=== PATIENT | female | born 1945 | race Caucasian/White ===

== ENCOUNTER 2022-09-21 15:53 | Emergency (ER) | payer MEDICARE, SELFPAY ==
[2022-09-21] VITALS (8 sets, daily range): BP systolic 170–210; BP diastolic 65–86; PULSE 62–79; RESP 20; TEMP 36.3; O2SAT 92–94; BMI 28.3
--- NOTE | 2022-09-21 16:17 | CRLHL7_ITS ---
For Patients: As a result of the Century Cures Act, medical imaging exams and procedure reports are released immediately into your electronic medical record. You may view this report before your referring provider. If you have questions, please contact your health care provider. Indication: Fall, left shoulder Pain Comparison: None available. Technique: AP, lateral, and axial views left elbow were obtained. Findings: There is no displaced fracture or dislocation. The joint spaces are grossly preserved. The soft tissues are unremarkable. Impression: No acute osseus abnormality. Dictated by Davin Go MD @ 09/21/2022 5:54:53 PM (Electronically Signed)
--- NOTE | 2022-09-21 16:17 | CRLHL7_ITS ---
For Patients: As a result of the Century Cures Act, medical imaging exams and procedure reports are released immediately into your electronic medical record. You may view this report before your referring provider. If you have questions, please contact your health care provider. Indication: Fall, left shoulder Pain Comparison: None available. Technique: AP and lateral views left humerus were obtained. Findings: There is a mildly comminuted, impacted fracture of the humeral neck. No evidence of dislocation. No other acute osseous abnormality. Mild soft tissue prominence. The partially visualized lung demonstrates chronic interstitial change. Impression: Mildly comminuted fracture of the humeral neck without significant malalignment. Dictated by Davin Go MD @ 09/21/2022 5:48:39 PM (Electronically Signed)
--- NOTE | 2022-09-21 16:17 | CRLHL7_ITS ---
For Patients: As a result of the Century Cures Act, medical imaging exams and procedure reports are released immediately into your electronic medical record. You may view this report before your referring provider. If you have questions, please contact your health care provider. Indication: Fall, left shoulder Pain Comparison: None available. Technique: AP and lateral views left humerus were obtained. Findings: There is a mildly impacted fracture of the proximal humerus without evidence of distal humeral injury. The joint spaces are grossly preserved. There is superficial soft tissue swelling. Impression: Mildly impacted fracture of the proximal humerus without evidence of distal injury. Dictated by Davin Go MD @ 09/21/2022 5:55:56 PM (Electronically Signed)
--- NOTE | 2022-09-21 17:11 | ED_ITS ---
HPI - General Adult General Time Seen by Provider: 17:12 Date Seen: 09/21/22 Chief complaint: Extremity Pain/Injury, Upper Stated complaint: Fell and injured left shoulder Time Seen by Provider: 09/21/22 17:10 Source: patient Mode of arrival: ambulatory Limitations: no limitations History of Present Illness HPI narrative: 72-year-old female who comes in today with left shoulder pain after a fall. She slipped and fell on the ice landing on her left elbow. She complains pain of the left elbow and shoulder. She is right-handed. Denies head head injury or loss of consciousness, denies other injury and has been ambulatory since her fall. Related Data Allergies Allergy/AdvReac Type Severity Reaction Status Date / Time No Known Drug Allergies Allergy Verified 09/21/22 16:07 Review of Systems Status of ROS: Reports: 10 or more systems reviewed and unremarkable except as noted in History and below [facility] PFS Social History Smoking Status: Current every day smoker What tobacco products do you use: cigarettes How often do you have a drink containing alcohol: never AUDIT-C Alcohol total score: 0 Non-prescribed substance use: denies use Exam Narrative: Exam Narrative: General: well nourished , NAD Head: Atraumatic and normocephalic ENT: External ears and external nose are normal Eyes: Conjunctiva clear, pupils are equal reactive, external ocular motions are intact Neck: Full spontaneous range of motion of the neck Lungs: No respiratory distress Musculoskeletal: Left shoulder tenderness and deformity, pain with any movement Neurologic: No gross focal neurologic deficits Skin: No rashes Psych: Mood and affect are appropriate Const: Vital Signs, click to edit/add: Vital Signs - 24 hr 09/21/22 16:03 Temperature 97.4 F L Pulse Rate [Pulse Oximeter] 79 Respiratory Rate 20 Blood Pressure [Ri ght Upper Arm] 170/68 H Pulse Oximetry 93 Oxygen Delivery Me thod Room Air Course Course Hospital Course: 5:13 p.m. patient seen examined, prior records are reviewed. X-rays ordered from triage independently interpreted by me demonstrate a fracture through the surgical neck on the left which is comminuted and mildly displaced. Patient will be placed in a sling and discharged. Reevaluation(s) Reevaluation #1: Radiology interpretation of x-rays agrees with my initial interpretation. Patient is stable for discharge. Time: 17:54 Vital Signs Vital signs: Initial Vital Signs Temperature 97.4 F L 09/21/22 16:03 Temperature Source Oral 09/21/22 16:03 Pulse Rate 79 09/21/22 16:03 Pulse Rhythm 09/21/22 16:03 Pulse Strength 3+ Normal 09/21/22 16:03 Respiratory Rate 20 09/21/22 16:03 Blood Pressure 170/68 H 09/21/22 16:03 Blood Pressure Mean 102 09/21/22 16:03 Blood Pressure Position Sitting 09/21/22 16:03 Pulse Oximetry 93 09/21/22 16:03 Oxygen Delivery Method 09/21/22 16:03 Vital Signs Temperature 97.4 F L 09/21/22 16:03 Pulse Rate 79 09/21/22 16:03 Respiratory Rate 20 09/21/22 16:03 Blood Pressure 170/68 H 09/21/22 16:03 Pulse Oximetry 93 09/21/22 16:03 Oxygen Delivery Method 09/21/22 16:03 Temperature 97.4 F L 09/21/22 16:03 Pulse Rate 79 09/21/22 16:03 Respiratory Rate 20 09/21/22 16:03 Blood Pressure 170/68 H 09/21/22 16:03 Pulse Oximetry 93 09/21/22 16:03 Oxygen Delivery Method 09/21/22 16:03 Medical Decision Making Medical Records Medical records reviewed: Yes I reviewed the patient's medical records Lab Data Lab results reviewed: Yes I reviewed the patient's lab results Discharge Plan Discharge Clinical Impression: Closed fracture of surgical neck of left humerus Patient Disposition: Home, Self-Care Condition: Improved Instructions: Arm Fracture in Adults (ED) Additional Instructions: Wear sling as much as possible. Follow-up in the [facility] orthopedic clinic next week [phone] Activity Level: Other Activity Detail: Wear sling at all times when you are up and about Discharge Diet: Regular Follow Up/Referrals: Veronica Florez DO [Primary Care Provider] - Stand Alone Forms: MyHealth Info Instructions
[2022-09-21] MEDS: HYDROCODONE-ACETAMIN 5-325 MG 1 TAB PO (17:38)
--- NOTE | 2022-09-21 18:27 | ED.NURSE ---
MD Patel aware that pt SBP>200 x2 and MD is okay with discharge. On D/C time last BP 190/72, pt is c/o of pain in left shoulder but denies CP and nausea.
== END 2022-09-21 18:25 | disposition home or self-care (01) ==
PROVIDERS: Emergency Provider Family Medicine; PCP Family Medicine
DX: S42.212A Unspecified displaced fracture of surgical neck of left humerus, initial encounter for closed fracture (principal); W00.0XXA Fall on same level due to ice and snow, initial encounter
CPT/HCPCS: 73030; 73060; 73080; 99283; 99284; 99285; A9270

== ENCOUNTER 2022-09-26 11:04 | Inpatient (IN) | payer MEDICARE, SELFPAY ==
[2022-09-26] VITALS (26 sets, daily range): BP systolic 128–167; BP diastolic 56–69; PULSE 55–87; RESP 20–28; TEMP 36.1–36.6; O2SAT 75–100; BMI 28.3
--- NOTE | 2022-09-26 11:28 | CRLHL7_ITS ---
For Patients: As a result of the Century Cures Act, medical imaging exams and procedure reports are released immediately into your electronic medical record. You may view this report before your referring provider. If you have questions, please contact your health care provider. INDICATION: Severe hypoxia and humerus fracture 1 week prior. TECHNIQUE: CT chest PE was acquired with 95 cc Isovue 370 intravenous contrast. COMPARISON: None. FINDINGS: Heart and vasculature: Contrast opacification of the pulmonary arterial tree is adequate. No sign of pulmonary embolism. Mild left ventricular dilatation. Severe coronary atherosclerosis. Thoracic aorta is normal in caliber with mild atherosclerotic calcification. Lungs and pleural: No pleural effusion or pneumothorax. Moderate to severe underlying centrilobular emphysema. Consolidation within the posterior and lateral segments of the right lower lobe. Discoid atelectasis left lower lobe. Lymph nodes/mediastinum: No mediastinal, hilar, or axillary adenopathy. Chest wall: Fat stranding along the left shoulder consistent the patient`s recent fracture. Upper abdomen: Cholelithiasis. Exophytic cyst upper pole left kidney. Slightly hyperdense lesion at the upper pole of the right kidney measuring 2.0 centimeters. Right renal atrophy. Bones: Surgical neck left proximal humerus fracture with mild medial displacement of the humeral shaft. IMPRESSION: 1. No evidence of pulmonary embolus. 2. Consolidation in the right lower lobe suspicious for pneumonia. 3. Left ventricular dilatation suggesting left ventricular failure with severe coronary atherosclerosis. 4. Moderate to severe centrilobular emphysema. 5. Indeterminate slightly hyperdense lesion at the upper pole the right kidney measuring 2.0 centimeters. Follow-up outpatient renal ultrasound suggested for further characterization. 6. Other incidental findings as detailed above. Please note that all CT scans at this facility use dose modulation, iterative reconstruction, and/or weight-based dosing when appropriate to reduce radiation dose to as low as reasonably achievable. Dictated by Paul Smiley MD @ 09/26/2022 2:01:36 PM (Electronically Signed)
[2022-09-26] MEDS: IPRAT-ALBUT 0.5-2.5 MG/3 ML NEB 1 NEB IH ×2 (11:34→19:40)
--- NOTE | 2022-09-26 11:50 | ED.GENADULT ---
HPI - General Adult General Date Seen: 09/26/22 Chief complaint: Shortness of Breath/Dyspnea Stated complaint: O2 in high 70s, BP 100/38 Time Seen by Provider: 09/26/22 11:25 Source: patient, RN notes reviewed and old records reviewed Mode of arrival: ambulatory Limitations: no limitations History of Present Illness HPI narrative: Is a 76-year-old woman who was seen here on September 21 after a fall. She sustained a left proximal humerus fracture. She went home in a sling. She had gone to clinic today, saying that apparently she was not able to get into Orthopedics and so she had gone to [facility] for follow-up for her arm. On arrival there she was noted to have O2 sats in the 70% range and so she was sent here for further evaluation. Her neighbor brought her to clinic and then brought her to the ER. She actually did not complain of shortness of breath there and does not complain of shortness of breath on arrival here although she says she has been feeling really fatigued. She denies any chest pain, no fever cough. She has not noted any unusual leg pain or swelling, she does have chronic lymphedema in the left leg. She denies history of previous DVT or PE. She does have some underlying COPD, continues to smoke. She is to inhalers that she uses but has not used any albuterol today. She has not felt wheezy. She has not had any palpitations or syncope. She is not on home oxygen, she says it was prescribed to her a number of years ago but she never actually needed it and it was taken away. Her normal O2 sats are in the mid to lower 90s. Last time she was here she was 93% on room air. Related Data Home Medications Medication Instructions Recorded Confirmed acyclovir 400 mg tablet 400 mg PO TID PRN 09/26/22 09/26/22 albuterol sulfate 90 mcg/actuation 2 puff inhalation Q6H PRN 09/26/22 09/26/22 aerosol inhaler allopurinol 100 mg tablet 100 mg PO DAILY 09/26/22 09/26/22 atorvastatin 80 mg tablet 80 mg PO HS 09/26/22 09/26/22 baclofen 10 mg tablet 10 mg PO QHS PRN 09/26/22 09/26/22 budesonide-formoterol HFA 80 2 puff inhalation Q12H 09/26/22 09/26/22 mcg-4.5 mcg/actuation aerosol inhaler (Symbicort) carvedilol 25 mg tablet 25 mg PO BID 09/26/22 09/26/22 cholecalciferol (vitamin D3) 50 50 mcg PO DAILY 09/26/22 09/26/22 mcg (2,000 unit) tablet diclofenac sodium 1 % topical gel 2 g topical QID PRN 09/26/22 09/26/22 (Voltaren Arthritis Pain) ezetimibe 10 mg tablet 10 mg PO DAILY 09/26/22 09/26/22 fexofenadine 180 mg tablet 180 mg PO DAILY 09/26/22 09/26/22 hydrocodone 5 mg-acetaminophen 325 tab 09/26/22 mg tablet isosorbide mononitrate 30 mg 30 mg PO DAILY 09/26/22 09/26/22 tablet,extended release 24 hr losartan 100 mg tablet 100 mg PO DAILY 09/26/22 09/26/22 nifedipine 90 mg tablet,extended 90 mg PO HS 09/26/22 09/26/22 release nystatin 100,000 unit/mL oral 5 ml mucous membrane QID PRN 09/26/22 09/26/22 suspension omeprazole 20 mg capsule,delayed 20 mg PO DAILY 09/26/22 09/26/22 release oxycodone 5 mg tablet 5 mg PO Q6H PRN 09/26/22 09/26/22 sertraline 50 mg tablet 50 mg PO DAILY 09/26/22 09/26/22 trazodone 50 mg tablet 25 - 50 mg PO HS PRN 09/26/22 09/26/22 umeclidinium 62.5 mcg/actuation 1 inh inhalation DAILY 09/26/22 09/26/22 blister powder for inhalation (Incruse Ellipta) Allergies Allergy/AdvReac Type Severity Reaction Status Date / Time clonidine Allergy Verified 09/26/22 11:19 Review of Systems Status of ROS: Reports: 10 or more systems reviewed and unremarkable except as noted in History and below [facility] Social History Highest level of school completed/degree received: some college, no degree Smoking Status: Current every day smoker What tobacco products do you use: cigarettes Smoking packs per day: 1 Smoking cigarettes per day: 20.0 Years smoked: 50 Smoking pack-years: 50.00 Second hand tobacco smoke exposure: Yes (spouse also smokes) How often do you have a drink containing alcohol: monthly or less Alcohol type: wine How often do you have six or more drinks on one occasion: Never AUDIT-C Alcohol total score: 1 Non-prescribed substance use: denies use Caffeine: Yes (coffee and soda gallons) service: No Exam Narrative: Exam Narrative: Vital signs as noted above. In general, an alert, well-appearing patient. At the time of my exam, she had been placed on 10 L by non-rebreather and was breathing easily, speaking in full sentences. Reportedly pale on arrival. Head: Normocephalic, atraumatic. Eyes: Pupils are equal reactive. Extraocular movements are full. Conjunctivae are normal. ENT: Mucous membranes are moist. Throat is normal. Neck: Supple without lymphadenopathy. No stridor. Heart: Regular rate and rhythm. No murmur or rub. Lungs: Clear bilaterally. No increased work of breathing, crackles or wheezes at the time of my exam, while on oxygen. Breath sounds mildly diminished bilaterally. Abdomen: Soft and nontender. No organomegaly. Extremities: Left upper extremity is in a sling. Radial pulse intact, no significant edema noted distally. CMS intact. Trace edema in the left lower extremity distally, baseline per patient. No calf tenderness, no erythema. Neurologic: Patient is alert and oriented to person and place. Speech is fluent. Face is symmetric. Moves all extremities equally. Affect: Normal. Skin: Warm and dry. Well perfused. Const: Vital Signs, click to edit/add: Vital Signs - 24 hr 09/26/22 11:22 09/26/22 11:40 09/26/22 11:40 Temperature 97.0 F L Pulse Rate Pulse Rate [Right Pulse Oximeter] 55 L Respiratory Rate 28 H Blood Pressure Blood Pressure [Ri ght Upper Arm] 136/63 Pulse Oximetry 75 L 97 97 Oxygen Delivery Me thod Room Air OxyMask Oxygen Flow Rate 8 09/26/22 11:47 09/26/22 11:50 09/26/22 12:00 Temperature Pulse Rate 57 L 57 L Pulse Rate [Right Pulse Oximeter] Respiratory Rate 22 Blood Pressure 128/61 Blood Pressure [Ri ght Upper Arm] Pulse Oximetry 100 100 94 Oxygen Delivery Me thod OxyMask OxyMask OxyMask Oxygen Flow Rate 8 8 10 09/26/22 11:51 09/26/22 12:00 09/26/22 12:01 Temperature Pulse Rate 56 L 57 L 58 L Pulse Rate [Right Pulse Oximeter] Respiratory Rate Blood Pressure 130/61 Blood Pressure [Ri ght Upper Arm] Pulse Oximetry 100 98 98 Oxygen Delivery Me thod OxyMask OxyMask OxyMask Oxygen Flow Rate 8 8 8 09/26/22 12:02 09/26/22 12:30 09/26/22 12:31 Temperature Pulse Rate 57 L 59 L 60 Pulse Rate [Right Pulse Oximeter] Respiratory Rate Blood Pressure 135/57 L Blood Pressure [Ri ght Upper Arm] Pulse Oximetry 98 97 97 Oxygen Delivery Me thod OxyMask OxyMask OxyMask Oxygen Flow Rate 8 8 8 09/26/22 13:04 09/26/22 13:05 09/26/22 13:30 Temperature Pulse Rate 66 64 66 Pulse Rate [Right Pulse Oximeter] Respiratory Rate Blood Pressure 133/58 L Blood Pressure [Ri ght Upper Arm] Pulse Oximetry 96 96 95 Oxygen Delivery Me thod OxyMask OxyMask OxyMask Oxygen Flow Rate 8 8 8 09/26/22 13:32 09/26/22 14:00 09/26/22 14:02 Temperature Pulse Rate 66 64 64 Pulse Rate [Right Pulse Oximeter] Respiratory Rate Blood Pressure 141/64 H 145/64 H Blood Pressure [Ri t Upper Arm] Pulse Oximetry 96 94 94 Oxygen Delivery Me thod OxyMask OxyMask OxyMask Oxygen Flow Rate 8 8 8 09/26/22 14:03 09/26/22 14:30 09/26/22 14:32 Temperature Pulse Rate 60 63 64 Pulse Rate [Right Pulse Oximeter] Respiratory Rate Blood Pressure 147/69 H Blood Pressure [Ri ght Upper Arm] Pulse Oximetry 94 94 95 Oxygen Delivery Me thod OxyMask OxyMask OxyMask Oxygen Flow Rate 8 8 8 09/26/22 14:33 09/26/22 15:00 09/26/22 15:02 Temperature Pulse Rate 63 68 66 Pulse Rate [Right Pulse Oximeter] Respiratory Rate Blood Pressure 156/67 H Blood Pressure [Ri ght Upper Arm] Pulse Oximetry 95 96 96 Oxygen Delivery Me thod OxyMask OxyMask OxyMask Oxygen Flow Rate 8 8 8 Documenting provider has reviewed patient's vital signs: yes Course Course Hospital Course: Patient was maintained on oxygen here, given her COPD will go ahead and try DuoNeb although I do not hear significant amount of bronchospasm. I have ordered an EKG. Considerations would include pulmonary embolism, pneumonia, pneumothorax, congestive heart failure, myocardial infarction, anemia, COVID or other infectious process, COPD. She shows rapid improvement on oxygen here. Reevaluation(s) Reevaluation #1: I did look at her heart with the ultrasound, I did not see any evidence of significant right ventricular dilation or pericardial effusion. Her labs were [place] [address]. Hemoglobin was normal at 12.6. Platelets normal. It have a left shift with 80% neutrophils. COVID flu and RSV were negative. Her venous gas was relatively unremarkable. PH was 7.3 P 50. Bicarb was normal at 24. Metabolic panel was unremarkable. LFTs normal. CRP mildly elevated at 2.8. BNP moderately elevated at 539. Her initial point of care troponin was elevated at 0.08, she had an EKG which by my review showed sinus bradycardia with a ventricular rate of 56 beats per minute. No acute ischemic changes. Normal T-waves. Normal R-wave progression. I repeated the troponin at around 2 hours and it was stable. She has been stable on oxygen here, she has been on 8 L on a non-rebreather with O2 sats around 94-95%. CT of the chest with contrast by my review did not show evidence of significant PE. She does appear to have some infiltrate at the right base, she also has significant emphysematous changes. Final radiology read is as follows: 1. No evidence of pulmonary embolus. 2. Consolidation in the right lower lobe suspicious for pneumonia. 3. Left ventricular dilatation suggesting left ventricular failure with severe coronary atherosclerosis. 4. Moderate to severe centrilobular emphysema. 5. Indeterminate slightly hyperdense lesion at the upper pole the right kidney measuring 2.0 centimeters. Follow-up outpatient renal ultrasound suggested for further characterization. 6. Other incidental findings as detailed above. Patient does show evidence of severe coronary atherosclerosis on her CT scan, but I do not find evidence of any acute coronary syndrome on her EKG and her troponins are stable. Significant hypoxia here seems to be attributable to pneumonia superimposed on severe COPD and likely minimal reserves. Patient expressed a wish to go home, but I have recommended admission for IV antibiotics and oxygen given her profound hypoxia, and she is willing to be admitted at this time. Vital Signs Vital signs: Initial Vital Signs Temperature 97.0 F L 09/26/22 11:22 Temperature Source Temporal Artery Scan 09/26/22 11:22 Pulse Rate 55 L 09/26/22 11:22 Respiratory Rate 28 H 09/26/22 11:22 Blood Pressure 136/63 09/26/22 11:22 Blood Pressure Mean 87 09/26/22 11:22 Blood Pressure Position Sitting 09/26/22 11:22 Pulse Oximetry 75 L 09/26/22 11:22 Oxygen Delivery Method 09/26/22 11:22 Vital Signs Temperature 97.0 F L 09/26/22 11:22 Pulse Rate 55 L 09/26/22 11:22 Respiratory Rate 28 H 09/26/22 11:22 Blood Pressure 136/63 09/26/22 11:22 Pulse Oximetry 75 L 09/26/22 11:22 Oxygen Delivery Method 09/26/22 11:22 Temperature 97.7 F 09/26/22 15:28 Pulse Rate 67 09/26/22 15:28 Respiratory Rate 22 09/26/22 15:28 Blood Pressure 145/60 H 09/26/22 15:28 Pulse Oximetry 89 09/26/22 15:28 Oxygen Delivery Method 09/26/22 15:28 Oxygen Flow Rate 3 09/26/22 15:28 Medical Decision Making Lab Data Labs: Lab Results 09/26/22 09/26/22 09/26/22 Range/Units 11:29 11:40 11:40 WBC 18.83 H (4.50-11.00) K/uL RBC 4.45 (4.00-5.20) m/uL Hgb 12.6 (12.0-16.0) gm/dL Hct 38.9 (33.0-51.0) % MCV 87 (80-100) fL MCH 28 (26-34) pg MCHC 32 (32-36) gm/dL RDW Coeff of Bart 14.4 (11.5-15.5) % Plt Count 291 (140-440) K/uL Neut % (Auto) 79.6 H (42.0-72.0) % Lymph % (Auto) 11.8 L (20-44) % [place] % (Auto) 5.4 (0.0-11.0) % Eos % (Auto) 2.3 (0.0-7.0) % Baso % (Auto) 0.2 (0.0-3.0) % Neut # (Auto) 15.00 H (1.7-7.0) K/uL Lymph # (Auto) 2.20 (0.90-2.90) K/uL [place] # (Auto) 1.00 H (0.00-0.90) K/UL Eos # (Auto) 0.40 (0.00-0.50) K/uL Baso # (Auto) 0.00 (0.00-0.30) K/uL INR (0.91-1.10) APTT (23-33) Seconds D-Dimer Quant (PE/DVT) 1.25 H (0.00-0.50) ug/ml VBG pH (7.32-7.43) VBG pCO2 (40-50) mmHG VBG pO2 (25-47) mmHG VBG HCO3 (21-28) mmol/L Sodium (135-149) mmol/L Potassium (3.6-5.1) mmol/L Chloride (96-114) mmol/L Carbon Dioxide (20-32) mmol/L BUN (7-30) mg/dL Creatinine (0.5-1.5) mg/dL Estimated Creat Clear Estimated GFR ml/min Glucose (60-115) mg/dL Calcium (8.4-10.6) mg/dL Total Bilirubin (0.1-1.5) mg/dL Direct Bilirubin (0.0-0.5) mg/dL AST (12-35) U/L ALT (4-35) U/L Alkaline Phosphatase (40-150) U/L C-Reactive Protein (0.5-1.0) mg/dL NT-Pro-B Natriuret Pep pg/mL Total Protein (6.0-8.3) g/dL Albumin (3.3-5.0) g/dL SARS-CoV-2 (PCR) (Negative) Influenza Type A (PCR) (Negative) Influenza Type B (PCR) (Negative) RSV (PCR) (Negative) POC Troponin I 0.08 H (0.01-0.04) ng/ml 09/26/22 09/26/22 09/26/22 Range/Units 11:40 11:40 11:40 WBC (4.50-11.00) K/uL RBC (4.00-5.20) m/uL Hgb (12.0-16.0) gm/dL Hct (33.0-51.0) % MCV (80-100) fL MCH (26-34) pg MCHC (32-36) gm/dL RDW Coeff of Bart (11.5-15.5) % Plt Count (140-440) K/uL Neut % (Auto) (42.0-72.0) % Lymph % (Auto) (20-44) % [place] % (Auto) (0.0-11.0) % Eos % (Auto) (0.0-7.0) % Baso % (Auto) (0.0-3.0) % Neut # (Auto) (1.7-7.0) K/uL Lymph # (Auto) (0.90-2.90) K/uL [place] # (Auto) (0.00-0.90) K/UL Eos # (Auto) (0.00-0.50) K/uL Baso # (Auto) (0.00-0.30) K/uL INR 0.87 L (0.91-1.10) APTT 33 (23-33) Seconds D-Dimer Quant (PE/DVT) (0.00-0.50) ug/ml VBG pH (7.32-7.43) VBG pCO2 (40-50) mmHG VBG pO2 (25-47) mmHG VBG HCO3 (21-28) mmol/L Sodium 140 (135-149) mmol/L Potassium 3.7 (3.6-5.1) mmol/L Chloride 109 (96-114) mmol/L Carbon Dioxide 24 (20-32) mmol/L BUN 22 (7-30) mg/dL Creatinine 1.3 (0.5-1.5) mg/dL Estimated Creat Clear 30.03 Estimated GFR 43 ml/min Glucose 144 H (60-115) mg/dL Calcium 10.0 (8.4-10.6) mg/dL Total Bilirubin (0.1-1.5) mg/dL Direct Bilirubin (0.0-0.5) mg/dL AST (12-35) U/L ALT (4-35) U/L Alkaline Phosphatase (40-150) U/L C-Reactive Protein 2.8 H (0.5-1.0) mg/dL NT-Pro-B Natriuret Pep pg/mL Total Protein (6.0-8.3) g/dL Albumin (3.3-5.0) g/dL SARS-CoV-2 (PCR) Negative SARS-CoV-2 (Negative) Influenza Type A (PCR) Negative PCR FLU A (Negative) Influenza Type B (PCR) Negative PCR FLU B (Negative) RSV (PCR) Negative PCR RSV (Negative) POC Troponin I (0.01-0.04) ng/ml 09/26/22 09/26/22 09/26/22 Range/Units 11:40 11:40 13:27 WBC (4.50-11.00) K/uL RBC (4.00-5.20) m/uL Hgb (12.0-16.0) gm/dL Hct (33.0-51.0) % MCV (80-100) fL MCH (26-34) pg MCHC (32-36) gm/dL RDW Coeff of Bart (11.5-15.5) % Plt Count (140-440) K/uL Neut % (Auto) (42.0-72.0) % Lymph % (Auto) (20-44) % [place] % (Auto) (0.0-11.0) % Eos % (Auto) (0.0-7.0) % Baso % (Auto) (0.0-3.0) % Neut # (Auto) (1.7-7.0) K/uL Lymph # (Auto) (0.90-2.90) K/uL [place] # (Auto) (0.00-0.90) K/UL Eos # (Auto) (0.00-0.50) K/uL Baso # (Auto) (0.00-0.30) K/uL INR (0.91-1.10) APTT (23-33) Seconds D-Dimer Quant (PE/DVT) (0.00-0.50) ug/ml VBG pH 7.300 L (7.32-7.43) VBG pCO2 50 (40-50) mmHG VBG pO2 50.4 H (25-47) mmHG VBG HCO3 24 (21-28) mmol/L Sodium (135-149) mmol/L Potassium (3.6-5.1) mmol/L Chloride (96-114) mmol/L Carbon Dioxide (20-32) mmol/L BUN (7-30) mg/dL Creatinine (0.5-1.5) mg/dL Estimated Creat Clear Estimated GFR ml/min Glucose (60-115) mg/dL Calcium (8.4-10.6) mg/dL Total Bilirubin 0.5 (0.1-1.5) mg/dL Direct Bilirubin 0.4 (0.0-0.5) mg/dL AST 24 (12-35) U/L ALT 15 (4-35) U/L Alkaline Phosphatase 116 (40-150) U/L C-Reactive Protein (0.5-1.0) mg/dL NT-Pro-B Natriuret Pep 539 pg/mL Total Protein 7.1 (6.0-8.3) g/dL Albumin 3.7 (3.3-5.0) g/dL SARS-CoV-2 (PCR) (Negative) Influenza Type A (PCR) (Negative) Influenza Type B (PCR) (Negative) RSV (PCR) (Negative) POC Troponin I 0.08 H (0.01-0.04) ng/ml Discharge Plan Discharge Patient Disposition: Admitted As Inpatient
[2022-09-26 11:53] LABS: Basophils Percent Auto 0.2 % (0.0-3.0); Eosinophils Percent Auto 2.3 % (0.0-7.0); HCO3 VBG 24 mmol/L (21-28); Hematocrit 38.9 % (33.0-51.0); Hemoglobin* 12.6 gm/dL (12.0-16.0); Immature Granulocytes Pct Auto 0.7 %; Lymphocytes Percent Auto 11.8 % (20-44); Mean Corpuscular HGB Conc 32 gm/dL (32-36); Mean Corpuscular Hemoglobin 28 pg (26-34); Mean Corpuscular Volume 87 fL (80-100); Monocytes Percent Auto 5.4 % (0.0-11.0); Neutrophils Percent Auto 79.6 % (42.0-72.0); PCO2 VBG 50 mmHG (40-50); PO2 VBG 50.4 mmHG (25-47); Platelet Count* 291 K/uL (140-440); RDW Coefficient of Variation % 14.4 % (11.5-15.5); Red Blood Count 4.45 m/uL (4.00-5.20); White Blood Count* 18.83 K/uL (4.50-11.00)
[2022-09-26 11:55] LABS: Slide Review Reflex No
--- NOTE | 2022-09-26 12:02 | RESP.RT ---
Patient arrived SOB, SaO2 upper 70's, Placed on Nasal Cannula 4 Lpm, changed to OxyMask 10 Lpm, SaO2 increased to 94%. respiratory rate 22/minute, BBS; right diminished with Expiratory wheeze, left diminished with expiratory wheeze. DuoNeb given to patient. Post treatment; BBS respiratory rate 18/minute, BBS with right good air movement, no wheeze noted, more air movement and expiratory wheeze louder, more musical. Returned to OxyMask 8 Lpm. Patient Smoker, 1 ppd x 56 years. Home respiratory medication Symbicort, and Albuterol MDI.
[2022-09-26 12:06] LABS: Troponin, Point-of-Care* 0.08 ng/ml (0.01-0.04)
[2022-09-26 12:06] LABS: Chloride* 109 mmol/L (96-114); Potassium* 3.7 mmol/L (3.6-5.1); Sodium* 140 mmol/L (135-149)
[2022-09-26 12:08] LABS: Albumin* 3.7 g/dL (3.3-5.0)
[2022-09-26 12:09] LABS: Creatinine* 1.3 mg/dL (0.5-1.5); Est. Creatinine Clearance* 30.03; Estimated Glomerular Filt Rate 43 ml/min
[2022-09-26 12:10] LABS: Bilirubin Direct* 0.4 mg/dL (0.0-0.5); Bilirubin Total* 0.5 mg/dL (0.1-1.5); Blood Urea Nitrogen* 22 mg/dL (7-30); Carbon Dioxide* 24 mmol/L (20-32); Glucose* 144 mg/dL (60-115); Total Protein* 7.1 g/dL (6.0-8.3)
[2022-09-26 12:11] LABS: Alanine Aminotransferase* 15 U/L (4-35); Alkaline Phosphatase* 116 U/L (40-150); Aspartate Amino Transferase* 24 U/L (12-35)
[2022-09-26 12:13] LABS: C Reactive Protein* 2.8 mg/dL (0.5-1.0); INR 0.87 (0.91-1.10); Prothrombin Time 12.4 Seconds
[2022-09-26 12:14] LABS: Partial Thromboplastin Time* 33 Seconds (23-33)
[2022-09-26 12:20] LABS: NT Pro B Type NatriureticPept* 539 pg/mL
[2022-09-26 12:35] LABS: PCR FLU A Negative PCR FLU A (Negative); PCR FLU B Negative PCR FLU B (Negative); PCR RSV Negative PCR RSV (Negative)
[2022-09-26 12:44] LABS: SARS PCR* Negative SARS-CoV-2 (Negative)
[2022-09-26 13:16] LABS: D Dimer Quantitative* 1.25 ug/ml (0.00-0.50)
[2022-09-26 13:51] LABS: Troponin, Point-of-Care* 0.08 ng/ml (0.01-0.04)
--- NOTE | 2022-09-26 14:35 | P.IMHP_ITS ---
Hospitalist- H&P: HPI History of Present Illness Date Seen: 09/29/22 Chief complaint: O2 in high 70s, BP 100/38 Narrative: Ariadne Miranda is a 76 year old female hx of COPD (active tobacco use), HTN, recent left proximal humerus on 09/21 after slipping on the ice outside of her car. She presented to the [facility] ER then for further evaluation. Her arm was placed in a sling and she was advised to follow-up with Orthopedics within one week. She presented to clinic today and was noted to be hypoxic 85% O2 Saturation at rest; 77% with activity. The patient was referred to ED for evaluation. she endorses left shoulder pain, but denies chest pain. Endorses SOb and subjective fever along with cough. In the ED CT PE study was negative for PE, but did show Right lower lobe consolidation, LV dilation suggestive of LV failure with severe CAD, moderate to severe emphysema. In the ED the patient was placed on high flow oxygen; started on ceftriaxone and azithromycin and admitted for further evaluation. ? CT PE IMPRESSION: 1. No evidence of pulmonary embolus. 2. Consolidation in the right lower lobe suspicious for pneumonia. 3. Left ventricular dilatation suggesting left ventricular failure with severe coronary atherosclerosis. 4. Moderate to severe centrilobular emphysema. 5. Indeterminate slightly hyperdense lesion at the upper pole the right kidney measuring 2.0 centimeters. Follow-up outpatient renal ultrasound suggested for further characterization. 6. Other incidental findings as detailed above. PMHX/SugHx/Social Hx 08/21/2012 COPD (chronic obstructive pulmonary disease) (HC) Date Unknown Gout Date Unknown HTN (hypertension) Date Unknown Hypercholesteremia Date Unknown Neuropathy Date Unknown Parathyroid abnormality (HC) Surgical History? 3 items 03/01/11 cataract [Other] 1980s Appendectomy Date Unknown [place] and bso Tobacco History? 4 items Smoking Status Every Day Types Cigarettes Amount 0.50 packs/day for 30.00 years; Pack years: 15.00 Smokeless Tobacco Status Never Review of Systems Status of ROS: Reports: 10 or more systems reviewed and unremarkable except as noted in History and below [facility] Medical History (Updated 09/28/22 @ 14:01 by Jaylen Rodriguez MD) CKD (chronic kidney disease), stage III COPD (chronic obstructive pulmonary disease) Hyperlipidemia Hypertension Lymphedema Osteoporosis Surgical History (Updated 09/27/22 @ 11:06 by Marialuisa Kessler MD) Hx of appendectomy S/P [place]-[facility] Social History Highest level of school completed/degree received: some college, no degree Smoking Status: Current every day smoker What tobacco products do you use: cigarettes Smoking packs per day: 1 Smoking cigarettes per day: 20.0 Years smoked: 50 Smoking pack-years: 50.00 Second hand tobacco smoke exposure: Yes (spouse also smokes) How often do you have a drink containing alcohol: monthly or less Alcohol type: wine How often do you have six or more drinks on one occasion: Never AUDIT-C Alcohol total score: 1 Non-prescribed substance use: denies use Caffeine: Yes (coffee and soda gallons) service: No Meds Home Medications and Allergies Home Medications Medication Instructions Recorded Confirmed Type acyclovir 400 mg tablet 400 mg PO TID PRN 09/26/22 09/26/22 History albuterol sulfate 90 mcg/actuation 2 puff inhalation Q6H PRN 09/26/22 09/26/22 History aerosol inhaler allopurinol 100 mg tablet 100 mg PO DAILY 09/26/22 09/26/22 History atorvastatin 80 mg tablet 80 mg PO HS 09/26/22 09/26/22 History baclofen 10 mg tablet 10 mg PO QHS PRN 09/26/22 09/26/22 History budesonide-formoterol HFA 80 2 puff inhalation Q12H 09/26/22 09/26/22 History mcg-4.5 mcg/actuation aerosol inhaler (Symbicort) carvedilol 25 mg tablet 25 mg PO BID 09/26/22 09/26/22 History cholecalciferol (vitamin D3) 50 50 mcg PO DAILY 09/26/22 09/26/22 History mcg (2,000 unit) tablet diclofenac sodium 1 % topical gel 2 g topical QID PRN 09/26/22 09/26/22 History (Voltaren Arthritis Pain) ezetimibe 10 mg tablet 10 mg PO DAILY 09/26/22 09/26/22 History fexofenadine 180 mg tablet 180 mg PO DAILY 09/26/22 09/26/22 History isosorbide mononitrate 30 mg 30 mg PO DAILY 09/26/22 09/26/22 History tablet,extended release 24 hr losartan 100 mg tablet 100 mg PO DAILY 09/26/22 09/26/22 History nifedipine 90 mg tablet,extended 90 mg PO HS 09/26/22 09/26/22 History release nystatin 100,000 unit/mL oral 5 ml mucous membrane QID PRN 09/26/22 09/26/22 History suspension omeprazole 20 mg capsule,delayed 20 mg PO DAILY 09/26/22 09/26/22 History release oxycodone 5 mg tablet 5 mg PO Q6H PRN 09/26/22 09/26/22 History sertraline 50 mg tablet 50 mg PO DAILY 09/26/22 09/26/22 History trazodone 50 mg tablet 25 - 50 mg PO HS PRN 09/26/22 09/26/22 History umeclidinium 62.5 mcg/actuation 1 inh inhalation DAILY 09/26/22 09/26/22 History blister powder for inhalation (Incruse Ellipta) multivit with 1 tab PO DAILY 09/27/22 09/27/22 History [id number]-lutein 8 mg iron-400 mcg-300 mcg tablet (Centrum Silver Women) Allergies Allergy/AdvReac Type Severity Reaction Status Date / Time clonidine Allergy Verified 09/26/22 11:19 Exam Narrative: Exam Narrative: Gen: no acute distress HEENT: NCAT EOMI mmm Neck: Supple CV: RRR normal s1 s2 Lungs: diminished breath sounds Abd: Soft,nt, nd Neuro: Alert, oriented, CN grossly intact; nonfocal screening?exam Psych: appropriate affect MSK: age appropriate muscle mass Skin; Warm, dry no rash on face Ext: trace pedal edema Const: Vital Signs, click to edit/add: Vital Signs - 24 hr 09/26/22 11:22 09/26/22 11:40 09/26/22 11:40 Temperature 97.0 F L Pulse Rate Pulse Rate [Right Pulse Oximeter] 55 L Respiratory Rate 28 H Blood Pressure Blood Pressure [Ri ght Upper Arm] 136/63 Pulse Oximetry 75 L 97 97 Oxygen Delivery Me thod Room Air OxyMask Oxygen Flow Rate 8 09/26/22 11:47 09/26/22 11:50 09/26/22 12:00 Temperature Pulse Rate 57 L 57 L Pulse Rate [Right Pulse Oximeter] Respiratory Rate 22 Blood Pressure 128/61 Blood Pressure [Ri ght Upper Arm] Pulse Oximetry 100 100 94 Oxygen Delivery Me thod OxyMask OxyMask OxyMask Oxygen Flow Rate 8 8 10 09/26/22 11:51 09/26/22 12:00 09/26/22 12:01 Temperature Pulse Rate 56 L 57 L 58 L Pulse Rate [Right Pulse Oximeter] Respiratory Rate Blood Pressure 130/61 Blood Pressure [Ri ght Upper Arm] Pulse Oximetry 100 98 98 Oxygen Delivery Me thod OxyMask OxyMask OxyMask Oxygen Flow Rate 8 8 8 09/26/22 12:02 09/26/22 12:30 09/26/22 12:31 Temperature Pulse Rate 57 L 59 L 60 Pulse Rate [Right Pulse Oximeter] Respiratory Rate Blood Pressure 135/57 L Blood Pressure [Ri ght Upper Arm] Pulse Oximetry 98 97 97 Oxygen Delivery Me thod OxyMask OxyMask OxyMask Oxygen Flow Rate 8 8 8 09/26/22 13:04 09/26/22 13:05 09/26/22 13:30 Temperature Pulse Rate 66 64 66 Pulse Rate [Right Pulse Oximeter] Respiratory Rate Blood Pressure 133/58 L Blood Pressure [Ri ght Upper Arm] Pulse Oximetry 96 96 95 Oxygen Delivery Me thod OxyMask OxyMask OxyMask Oxygen Flow Rate 8 8 8 09/26/22 13:32 09/26/22 14:00 09/26/22 14:02 Temperature Pulse Rate 66 64 64 Pulse Rate [Right Pulse Oximeter] Respiratory Rate Blood Pressure 141/64 H 145/64 H Blood Pressure [Ri ght Upper Arm] Pulse Oximetry 96 94 94 Oxygen Delivery Me thod OxyMask OxyMask OxyMask Oxygen Flow Rate 8 8 8 Hospitalist - H&P: Result Labs Labs: Short CBC 09/26/22 Range/Units 11:40 WBC 18.83 H (4.50-11.00) K/uL Hgb 12.6 (12.0-16.0) gm/dL Hct 38.9 (33.0-51.0) % Plt Count 291 (140-440) K/uL BMP 09/26/22 11:40 Sodium 140 Potassium 3.7 Chloride 109 Carbon Dioxide 24 BUN 22 Creatinine 1.3 Glucose 144 H Calcium 10.0 Liver Function 01/17/23 Range/Units 11:40 Total Bilirubin 0.5 (0.1-1.5) mg/dL Direct Bilirubin 0.4 (0.0-0.5) mg/dL AST 24 (12-35) U/L ALT 15 (4-35) U/L Alkaline Phosphatase 116 (40-150) U/L Albumin 3.7 (3.3-5.0) g/dL Assessment and Plan Assessment and plan (1) COPD (chronic obstructive pulmonary disease): Problem comment: - started on Prednisone in addition to antibiotics, recommend taper upon discharge Status: Acute Plan Assessment: Ariadne Miranda is a 76 year old female hx of COPD (active tobacco use), HTN, recent left proximal humerus on 09/21 after slipping on the ice outside of her car. She presented to the [facility] ER then for further evaluation. Her arm was placed in a sling and she was advised to follow-up with Orthopedics within one week. She presented to clinic today and was noted to be hypoxic 85% O2 Saturation at rest; 77% with activity. In the ED CT PE study was negative for PE, but did show Right lower lobe consolidation, LV dilation suggestive of LV failure with severe CAD, moderate to severe emphysema. In the ED the patient was placed on high flow oxygen; started on ceftriaxone and azithromycin and admitted for further evaluation. 1. Acute Hypoxic Respiratory Failure secondary to RLL PNA 2. Concurrent COPD Exacerbation secondary to #1 3. Tobacco use disorder 4. Hx of HTN 5. LV dilation suggestive of LV failure with severe CAD, moderate to severe emphysema 6. Hx of HLD 7. Hx of GERD 8. Hx of Depression 9. Elevated troponin likely demand mediated ischemia; no active chest pain 9. recent left proximal humerus fx 10. Indeterminate slightly hyperdense lesion at the upper pole the right kidney measuring 2.0 centimeters. Follow-up outpatient renal ultrasound suggested for further characterization Plan -admit to CCU -start solumedrol -ceftriaxone+doxycyline -tessalon/mucinex -scheduled duoneb +prn duoneb -RT consult -nicotine patch -cessation counseling -Echo -tele -continue PPI -outpatient Ortho follow up -wean oxygen as tolerated Code-Full DVT ppx-lovenox Dispo-anticipated discharge home 2-3 days
[2022-09-26] MEDS: AZITHROMYCIN 250 MG TABLET 500 MG PO (14:44)
[2022-09-26] MEDS: cefTRIAXone 1 GM in 0.9 % SODIUM CHLORIDE Mini-bag 100 ML IVPB (14:45)
--- NOTE | 2022-09-26 15:04 | ED.NURSE ---
Report called to M/S AMBER Dubon.
[2022-09-26] MEDS: ACETAMINOPHEN 500 MG TABLET PO (16:12)
[2022-09-26] MEDS: HYDROmorphone 0.5 mg/0.5 ml inj IVP (16:13)
[2022-09-26] MEDS: METHYLPREDNISOLONE SOD SUCC 62.5 MG/ML (125) 125 MG IVP (16:18)
--- NOTE | 2022-09-26 19:49 | PC.NURSE ---
Shift Note [id number]: Pt weaned to 2-3L/O2 via NC at rest but requires O2 increase with activity. Moves well with SBA and denies ever feeling SOB despite desaturations to 78% with activity. Rates pain 7/10 to left arm, Tylenol and 0.5mg Dilaudid given PRN. Solu-Medrol given IVP and nicotine cartridge at bedside for pt use. Declined Nicotine patch.
[2022-09-26] MEDS: SODIUM CHLORIDE 0.9 % (FLUSH) 10 ML SYRINGE 5 ML IVF (20:39)
[2022-09-26] MEDS: ENOXAPARIN 40 MG/0.4 ML INJ SUBCUT (20:39)
[2022-09-26] MEDS: guaiFENesin 600 MG TAB.ER.12H PO (20:39)
[2022-09-26] MEDS: ATORVASTATIN CALCIUM 40 MG TABLET 80 MG PO (20:39)
[2022-09-27] VITALS (13 sets, daily range): BP systolic 178–215; BP diastolic 69–113; PULSE 84–95; RESP 16–22; TEMP 36.6–36.9; O2SAT 89–96
--- NOTE | 2022-09-27 05:48 | PC.NURSE ---
Shift note: Pt is on 2L O2 NC, sats 90-93% at rest. SOB with exertion, pt ambulates to the BR and back to bed flow increased to 3L sats 88-90%. She reports generally to feel much better. Pain in left shoulder rated 4-7/10, pt declined pain medications throughout this shift.
[2022-09-27] MEDS: IPRAT-ALBUT 0.5-2.5 MG/3 ML NEB 1 NEB IH ×3 (06:49→18:16)
[2022-09-27] MEDS: OMEPRAZOLE 20 MG CAPSULE DR PO (06:49)
[2022-09-27] MEDS: OXYCODONE 5 MG TABLET PO ×4 (06:56→22:12)
[2022-09-27 07:21] LABS: HCO3 VBG 26 mmol/L (21-28); PCO2 VBG 51 mmHG (40-50); PO2 VBG 28.9 mmHG (25-47); pH VBG 7.319 (7.32-7.43)
[2022-09-27 07:26] LABS: Basophils Percent Auto 0.1 % (0.0-3.0); Eosinophils Percent Auto 0.1 % (0.0-7.0); Hematocrit 39.8 % (33.0-51.0); Hemoglobin* 12.9 gm/dL (12.0-16.0); Immature Granulocytes Pct Auto 0.5 %; Lymphocytes Percent Auto 6.6 % (20-44); Mean Corpuscular HGB Conc 32 gm/dL (32-36); Mean Corpuscular Hemoglobin 29 pg (26-34); Mean Corpuscular Volume 88 fL (80-100); Monocytes Percent Auto 2.1 % (0.0-11.0); Neutrophils Percent Auto 90.6 % (42.0-72.0); Platelet Count* 295 K/uL (140-440); RDW Coefficient of Variation % 14.4 % (11.5-15.5); Red Blood Count 4.51 m/uL (4.00-5.20); White Blood Count* 15.97 K/uL (4.50-11.00)
[2022-09-27 07:35] LABS: Slide Review Reflex No
[2022-09-27 07:47] LABS: Chloride* 112 mmol/L (96-114); Potassium* 3.9 mmol/L (3.6-5.1); Sodium* 142 mmol/L (135-149)
[2022-09-27 07:50] LABS: Carbon Dioxide* 24 mmol/L (20-32); Creatinine* 0.9 mg/dL (0.5-1.5); Est. Creatinine Clearance* 39.04; Estimated Glomerular Filt Rate 67 ml/min
[2022-09-27 07:51] LABS: Blood Urea Nitrogen* 20 mg/dL (7-30); Calcium* 9.8 mg/dL (8.4-10.6); Glucose* 165 mg/dL (60-115)
[2022-09-27 07:57] LABS: NT Pro B Type NatriureticPept* 1010 pg/mL
[2022-09-27 08:05] LABS: Procalcitonin* 0.04 ng/mL (<0.50)
[2022-09-27] MEDS: guaiFENesin 600 MG TAB.ER.12H PO ×2 (08:50→21:09)
[2022-09-27] MEDS: DOXYCYCLINE HYCLATE 100 MG CAPSULE PO ×2 (08:50→21:08)
[2022-09-27] MEDS: predniSONE 20 MG TABLET 40 MG PO (08:50)
[2022-09-27] MEDS: ISOSORBIDE MONONITRATE ER 30 MG TAB PO (08:50)
[2022-09-27] MEDS: LOSARTAN POTASSIUM 50 MG TABLET 100 MG PO (08:54)
[2022-09-27] MEDS: allopurinoL 100 MG TABLET PO (08:54)
[2022-09-27] MEDS: carvediloL 25 MG TABLET PO ×2 (08:54→21:09)
[2022-09-27] MEDS: ACETAMINOPHEN 500 MG TABLET PO (08:57)
[2022-09-27] MEDS: SODIUM CHLORIDE 0.9 % (FLUSH) 10 ML SYRINGE 5 ML IVF ×2 (09:01→21:07)
--- NOTE | 2022-09-27 09:45 | P.IMPN_ITS ---
Progress Note: A&P Assessment and plan (1) Acute respiratory failure with hypoxia: Problem details: - multifactorial: History of COPD, new right lower lobe pneumonia, narcotic use from recent fracture - appreciate input from RT, continue to wean oxygen as tolerated - Patient high risk for complications given above-noted findings Status: Acute (2) Pneumonia: Problem details: - continue Ceftriaxone and Azithromycin Status: Acute (3) Closed fracture of surgical neck of left humerus: Problem details: - doing well with sling, therapies following Status: Acute (4) COPD (chronic obstructive pulmonary disease): Problem details: - started on Prednisone in addition to antibiotics, recommend taper upon discharge Status: Acute (5) Hypertension: Problem details: - home medications held on admission given hypotension; restarted 09/27 Status: Acute (6) Elevated troponin: Problem details: - only POC troponin checked; will obtain serum troponin from morning labs 09/27 - likely 2/2 demand ischemia from COPD exacerbation and PNA - TTE obtained; formal cardiology read pending at this time Status: Acute Plan - schedule Tylenol to limit narcotic use, add in Vistaril as prn - continue to wean supplemental oxygen as tolerated - Continue antibiotics - Possibly home tomorrow with partner, pending clinical course and input from therapies Subjective Date Seen: 09/27/22 Interval history: No acute events overnight. Ariadne is weaning supplemental oxygen. She has no chest pain. Working on ADLs (difficult with L humeral fracture; L hand dominant). Exam Narrative: Exam Narrative: GEN: Alert and oriented, nontoxic in appearance HEENT: Normal external ears, EOMIs bilaterally CV: RRR, No concerning murmurs, rubs, or gallops R: Air movement decreased but adequate, rhonchi bilateral bases, no active wheezing during my exam Ext: wwp, no concerning edema Skin: No concerning skin lesions or rashes on exposed skin Neuro: Fine pill rolling tremor RUE noted intermittently during visit, no other abnormalities Psych: Appropriate Const: Vital Signs, click to edit/add: Vital Signs - 24 hr 09/26/22 11:22 09/26/22 11:40 09/26/22 11:40 Temperature 97.0 F L Pulse Rate Pulse Rate [Apical ] Pulse Rate [Pulse Oximeter] Pulse Rate [Right Pulse Oximeter] 55 L Respiratory Rate 28 H Blood Pressure Blood Pressure [Ri ght Arm] Blood Pressure [Ri ght Upper Arm] 136/63 Pulse Oximetry 75 L 97 97 Oxygen Delivery Me thod Room Air OxyMask Oxygen Flow Rate 8 09/26/22 11:47 09/26/22 11:50 09/26/22 12:00 Temperature Pulse Rate 57 L 57 L Pulse Rate [Apical ] Pulse Rate [Pulse Oximeter] Pulse Rate [Right Pulse Oximeter] Respiratory Rate 22 Blood Pressure 128/61 Blood Pressure [Ri ght Arm] Blood Pressure [Ri ght Upper Arm] Pulse Oximetry 100 100 94 Oxygen Delivery Me thod OxyMask OxyMask OxyMask Oxygen Flow Rate 8 8 10 09/26/22 11:51 09/26/22 12:00 09/26/22 12:01 Temperature Pulse Rate 56 L 57 L 58 L Pulse Rate [Apical ] Pulse Rate [Pulse Oximeter] Pulse Rate [Right Pulse Oximeter] Respiratory Rate Blood Pressure 130/61 Blood Pressure [Ri ght Arm] Blood Pressure [Ri ght Upper Arm] Pulse Oximetry 100 98 98 Oxygen Delivery Me thod OxyMask OxyMask OxyMask Oxygen Flow Rate 8 8 8 09/26/22 12:02 09/26/22 12:30 09/26/22 12:31 Temperature Pulse Rate 57 L 59 L 60 Pulse Rate [Apical ] Pulse Rate [Pulse Oximeter] Pulse Rate [Right Pulse Oximeter] Respiratory Rate Blood Pressure 135/57 L Blood Pressure [Ri ght Arm] Blood Pressure [Ri ght Upper Arm] Pulse Oximetry 98 97 97 Oxygen Delivery Me thod OxyMask OxyMask OxyMask Oxygen Flow Rate 8 8 8 09/26/22 13:04 09/26/22 13:05 09/26/22 13:30 Temperature Pulse Rate 66 64 66 Pulse Rate [Apical ] Pulse Rate [Pulse Oximeter] Pulse Rate [Right Pulse Oximeter] Respiratory Rate Blood Pressure 133/58 L Blood Pressure [Ri ght Arm] Blood Pressure [Ri ght Upper Arm] Pulse Oximetry 96 96 95 Oxygen Delivery Me thod OxyMask OxyMask OxyMask Oxygen Flow Rate 8 8 8 09/26/22 13:32 09/26/22 14:00 09/26/22 14:02 Temperature Pulse Rate 66 64 64 Pulse Rate [Apical ] Pulse Rate [Pulse Oximeter] Pulse Rate [Right Pulse Oximeter] Respiratory Rate Blood Pressure 141/64 H 145/64 H Blood Pressure [Ri ght Arm] Blood Pressure [Ri ght Upper Arm] Pulse Oximetry 96 94 94 Oxygen Delivery Me thod OxyMask OxyMask OxyMask Oxygen Flow Rate 8 8 8 09/26/22 14:03 09/26/22 14:30 09/26/22 14:32 Temperature Pulse Rate 60 63 64 Pulse Rate [Apical ] Pulse Rate [Pulse Oximeter] Pulse Rate [Right Pulse Oximeter] Respiratory Rate Blood Pressure 147/69 H Blood Pressure [Ri ght Arm] Blood Pressure [Ri ght Upper Arm] Pulse Oximetry 94 94 95 Oxygen Delivery Me thod OxyMask OxyMask OxyMask Oxygen Flow Rate 8 8 8 09/26/22 14:33 09/26/22 15:00 09/26/22 15:02 Temperature Pulse Rate 63 68 66 Pulse Rate [Apical ] Pulse Rate [Pulse Oximeter] Pulse Rate [Right Pulse Oximeter] Respiratory Rate Blood Pressure 156/67 H Blood Pressure [Ri ght Arm] Blood Pressure [Ri ght Upper Arm] Pulse Oximetry 95 96 96 Oxygen Delivery Me thod OxyMask OxyMask OxyMask Oxygen Flow Rate 8 8 8 09/26/22 15:20 09/26/22 15:28 09/26/22 15:28 Temperature 97.7 F Pulse Rate Pulse Rate [Apical ] 67 Pulse Rate [Pulse Oximeter] 67 Pulse Rate [Right Pulse Oximeter] Respiratory Rate 22 22 Blood Pressure Blood Pressure [Ri ght Arm] 145/60 H Blood Pressure [Ri ght Upper Arm] Pulse Oximetry 94 92 89 Oxygen Delivery Me thod OxyMask Nasal Cannula Oxygen Flow Rate 4 3 09/26/22 19:00 09/26/22 23:00 09/26/22 23:00 Temperature 98 F Pulse Rate 79 Pulse Rate [Apical ] 75 Pulse Rate [Pulse Oximeter] 75 Pulse Rate [Right Pulse Oximeter] Respiratory Rate 20 22 Blood Pressure Blood Pressure [Ri ght Arm] 142/56 H Blood Pressure [Ri ght Upper Arm] Pulse Oximetry 89 Oxygen Delivery Me thod Nasal Cannula Oxygen Flow Rate 3 09/26/22 23:00 09/26/22 23:00 09/27/22 03:00 Temperature 98 F 97.9 F Pulse Rate Pulse Rate [Apical ] 87 Pulse Rate [Pulse Oximeter] 75 88 Pulse Rate [Right Pulse Oximeter] Respiratory Rate 22 22 22 Blood Pressure Blood Pressure [Ri ght Arm] 167/62 H 178/85 H Blood Pressure [Ri ght Upper Arm] Pulse Oximetry 89 91 94 Oxygen Delivery Me thod Nasal Cannula Nasal Cannula Nasal Cannula Oxygen Flow Rate 3 3 2 09/27/22 07:57 09/27/22 09:00 09/27/22 09:00 Temperature 98.0 F Pulse Rate Pulse Rate [Apical ] Pulse Rate [Pulse Oximeter] 94 Pulse Rate [Right Pulse Oximeter] Respiratory Rate 16 Blood Pressure Blood Pressure [Ri ght Arm] 195/69 H Blood Pressure [Ri ght Upper Arm] Pulse Oximetry 96 96 96 Oxygen Delivery Me thod Nasal Cannula Nasal Cannula Oxygen Flow Rate 1 1 09/27/22 09:20 Temperature Pulse Rate Pulse Rate [Apical ] Pulse Rate [Pulse Oximeter] Pulse Rate [Right Pulse Oximeter] Respiratory Rate Blood Pressure Blood Pressure [Ri ght Arm] Blood Pressure [Ri ght Upper Arm] Pulse Oximetry 90 Oxygen Delivery Me thod Room Air Oxygen Flow Rate Labs Labs: Laboratory Results - last 24 hr 09/26/22 09/26/22 09/26/22 11:29 11:40 11:40 WBC 18.83 H RBC 4.45 Hgb 12.6 Hct 38.9 MCV 87 MCH 28 MCHC 32 RDW Coeff of Bart 14.4 Plt Count 291 Neut % (Auto) 79.6 H Lymph % (Auto) 11.8 L [place] % (Auto) 5.4 Eos % (Auto) 2.3 Baso % (Auto) 0.2 Neut # (Auto) 15.00 H Lymph # (Auto) 2.20 [place] # (Auto) 1.00 H Eos # (Auto) 0.40 Baso # (Auto) 0.00 INR APTT D-Dimer Quant (PE/DVT) 1.25 H VBG pH VBG pCO2 VBG pO2 VBG HCO3 Sodium Potassium Chloride Carbon Dioxide BUN Creatinine Estimated Creat Clear Estimated GFR Glucose Calcium Total Bilirubin Direct Bilirubin AST ALT Alkaline Phosphatase C-Reactive Protein NT-Pro-B Natriuret Pep Total Protein Albumin Procalcitonin SARS-CoV-2 (PCR) Influenza Type A (PCR) Influenza Type B (PCR) RSV (PCR) POC Troponin I 0.08 H 09/26/22 09/26/22 09/26/22 11:40 11:40 11:40 WBC RBC Hgb Hct MCV MCH MCHC RDW Coeff of Bart Plt Count Neut % (Auto) Lymph % (Auto) [place] % (Auto) Eos % (Auto) Baso % (Auto) Neut # (Auto) Lymph # (Auto) [place] # (Auto) Eos # (Auto) Baso # (Auto) INR 0.87 L APTT 33 D-Dimer Quant (PE/DVT) VBG pH VBG pCO2 VBG pO2 VBG HCO3 Sodium 140 Potassium 3.7 Chloride 109 Carbon Dioxide 24 BUN 22 Creatinine 1.3 Estimated Creat Clear 30.03 Estimated GFR 43 Glucose 144 H Calcium 10.0 Total Bilirubin Direct Bilirubin AST ALT Alkaline Phosphatase C-Reactive Protein 2.8 H NT-Pro-B Natriuret Pep Total Protein Albumin Procalcitonin SARS-CoV-2 (PCR) Negative SARS-CoV-2 Influenza Type A (PCR) Negative PCR FLU A Influenza Type B (PCR) Negative PCR FLU B RSV (PCR) Negative PCR RSV POC Troponin I 09/26/22 09/26/22 09/26/22 11:40 11:40 13:27 WBC RBC Hgb Hct MCV MCH MCHC RDW Coeff of Bart Plt Count Neut % (Auto) Lymph % (Auto) [place] % (Auto) Eos % (Auto) Baso % (Auto) Neut # (Auto) Lymph # (Auto) [place] # (Auto) Eos # (Auto) Baso # (Auto) INR APTT D-Dimer Quant (PE/DVT) VBG pH 7.300 L VBG pCO2 50 VBG pO2 50.4 H VBG HCO3 24 Sodium Potassium Chloride Carbon Dioxide BUN Creatinine Estimated Creat Clear Estimated GFR Glucose Calcium Total Bilirubin 0.5 Direct Bilirubin 0.4 AST 24 ALT 15 Alkaline Phosphatase 116 C-Reactive Protein NT-Pro-B Natriuret Pep 539 Total Protein 7.1 Albumin 3.7 Procalcitonin SARS-CoV-2 (PCR) Influenza Type A (PCR) Influenza Type B (PCR) RSV (PCR) POC Troponin I 0.08 H 09/27/22 09/27/22 09/27/22 06:30 06:30 06:30 WBC 15.97 H RBC 4.51 Hgb 12.9 Hct 39.8 MCV 88 MCH 29 MCHC 32 RDW Coeff of Bart 14.4 Plt Count 295 Neut % (Auto) 90.6 H Lymph % (Auto) 6.6 L [place] % (Auto) 2.1 Eos % (Auto) 0.1 Baso % (Auto) 0.1 Neut # (Auto) 14.50 H Lymph # (Auto) 1.10 [place] # (Auto) 0.30 Eos # (Auto) 0.00 Baso # (Auto) 0.00 INR APTT D-Dimer Quant (PE/DVT) VBG pH 7.319 L VBG pCO2 51 H VBG pO2 28.9 VBG HCO3 26 Sodium 142 Potassium 3.9 Chloride 112 Carbon Dioxide 24 BUN 20 Creatinine 0.9 Estimated Creat Clear 39.04 Estimated GFR 67 Glucose 165 H Calcium 9.8 Total Bilirubin Direct Bilirubin AST ALT Alkaline Phosphatase C-Reactive Protein NT-Pro-B Natriuret Pep 1010 Total Protein Albumin Procalcitonin 0.04 SARS-CoV-2 (PCR) Influenza Type A (PCR) Influenza Type B (PCR) RSV (PCR) POC Troponin I
[2022-09-27 12:08] LABS: Troponin I* 0.03 ng/mL (0.01-0.04)
--- NOTE | 2022-09-27 12:18 | RESP.RT ---
Patient up in bed, weaned Oxygen off. SaO2 92%, respiratory rate 20/minute, good cough able to clear secretions when present. PEP with Aerobika, information, demonstration; patient return demonstration with good effort, good chest shake, had patient feel her chest shake to understand, the why, the use of the Aerobika, patient understands and verbalizes so.
[2022-09-27] MEDS: ACETAMINOPHEN 500 MG TABLET 1000 MG PO ×2 (12:48→21:08)
[2022-09-27] MEDS: 0.9 % SODIUM CHLORIDE 250 ml IV (12:51)
[2022-09-27] MEDS: cefTRIAXone 1 GM in 0.9 % SODIUM CHLORIDE Mini-bag 100 ML IVPB (12:56)
--- NOTE | 2022-09-27 14:03 | PC.NURSE ---
Patient was calm and cooperative during shift. Patient complained of left upper arm pain 6-8/10, managed by PRN and scheduled medication see EMAR. Patient tolerated breakfast and fluids well, Pt does not eat lunch. Per Pt lymphedema in Left lower extremity which is chronic and at baseline per Pt. Pt. was offered compression stockings-refused,elevation and ambulation encouraged. Pt started on 3L nasal canula at beginning of shift and RT weaned to RA Pt's sat's remained 88-92% during spot check. RT educated Pt on Aerobika- travel writer encouraged use through out the day. Pt has been using independently through out shift.
--- NOTE | 2022-09-27 18:43 | PC.NURSE ---
Pt up independently in room. Left arm in sling, rates pain 5-6/10, see MAR for medication administration with relief. Tolerated dinner w/o N/V. Pt states I really want to go home. I'm not a good patient.
[2022-09-27] MEDS: ENOXAPARIN 40 MG/0.4 ML INJ SUBCUT (21:06)
[2022-09-27] MEDS: NIFEdipine 30 MG TAB.ER.24 90 MG PO (21:07)
[2022-09-27] MEDS: ATORVASTATIN CALCIUM 40 MG TABLET 80 MG PO (21:08)
[2022-09-28] VITALS (10 sets, daily range): BP systolic 167–197; BP diastolic 55–78; PULSE 3–78; RESP 18–22; TEMP 36.5–36.7; O2SAT 81–90
[2022-09-28] MEDS: ACETAMINOPHEN 500 MG TABLET 1000 MG PO ×3 (06:39→20:51)
[2022-09-28] MEDS: OMEPRAZOLE 20 MG CAPSULE DR PO (06:40)
[2022-09-28] MEDS: IPRAT-ALBUT 0.5-2.5 MG/3 ML NEB 1 NEB IH ×4 (06:40→20:50)
--- NOTE | 2022-09-28 07:02 | PC.NURSE ---
Pt pleasant and cooperative. Did have one melt down where she yelled at this handbook writer. Did later appologize and have not had any other issues. VSS. She is up independantly in the room and to the BR. Has good CMS to left arm and fingers. Minimal pain which is controlled with Tylenol and occasional oxycodone.
[2022-09-28] MEDS: SODIUM CHLORIDE 0.9 % (FLUSH) 10 ML SYRINGE 5 ML IVF (09:17)
[2022-09-28] MEDS: EZETIMIBE 10 MG TABLET PO (09:17)
[2022-09-28] MEDS: Umeclidinium [Incruse Ellipta] 62.5 mcg/actuation 1 EACH IH (09:17)
[2022-09-28] MEDS: guaiFENesin 600 MG TAB.ER.12H PO ×2 (09:17→20:52)
[2022-09-28] MEDS: FEXOFENADINE 180 MG TABLET PO (09:18)
[2022-09-28] MEDS: predniSONE 20 MG TABLET 40 MG PO (09:18)
[2022-09-28] MEDS: SERTRALINE 50 MG TABLET PO (09:19)
[2022-09-28] MEDS: DOXYCYCLINE HYCLATE 100 MG CAPSULE PO ×2 (09:19→20:53)
[2022-09-28] MEDS: allopurinoL 100 MG TABLET PO (09:20)
[2022-09-28] MEDS: ISOSORBIDE MONONITRATE ER 30 MG TAB PO (09:20)
[2022-09-28] MEDS: carvediloL 25 MG TABLET PO ×2 (09:20→20:52)
[2022-09-28] MEDS: LOSARTAN POTASSIUM 50 MG TABLET 100 MG PO (09:20)
[2022-09-28] MEDS: OXYCODONE 5 MG TABLET PO ×2 (11:04→21:27)
[2022-09-28] MEDS: hydrOXYzine pamoate 25 MG CAPSULE PO (12:47)
[2022-09-28] MEDS: CEFPODOXIME PROXETIL 200 MG TABLET PO ×2 (12:47→21:28)
--- NOTE | 2022-09-28 13:51 | PM.IMPN1 ---
Progress Note: A&P Assessment and plan (1) Acute respiratory failure with hypoxia: Problem details: - multifactorial: History of COPD, new right lower lobe pneumonia, narcotic use from recent fracture - appreciate input from RT, continue to wean oxygen as tolerated - Patient high risk for complications given above-noted findings Status: Acute Assessment and Plan: Continue with oxygen support for now. Attempt to wean off of oxygen by tomorrow if possible. Patient has indicated that she will not be to discharge home on oxygen, that she will not use any supplemental oxygen her home. (2) Pneumonia: Problem details: - discontinue Ceftriaxone and Azithromycin and switched to cefpodoxime 200 mg orally twice daily and continue with oral doxycycline 100 mg twice daily. Status: Acute (3) Closed fracture of surgical neck of left humerus: Problem details: - doing well with sling, therapies following Status: Acute (4) COPD (chronic obstructive pulmonary disease): Problem details: - started on Prednisone in addition to antibiotics, recommend taper upon discharge Status: Acute (5) Hypertension: Problem details: - home medications held on admission given hypotension; restarted 09/27 Status: Acute Assessment and Plan: Blood pressures are elevated here in hospital. She is on all her medications. Continue the same. (6) Elevated troponin: Problem details: - only POC troponin checked; will obtain serum troponin from morning labs 09/27 - likely 2/2 demand ischemia from COPD exacerbation and PNA - TTE obtained: Normal LV function with EF 60-65%, mild LVH, mild left atrial enlargement, mild aortic and mitral valve insufficiency. Status: Acute Plan 1. Reviewed with patient. 2. Continue with efforts to try to wean off of oxygen. 3. Recommend that patient go home with oxygen if she still needs oxygen tomorrow. She states she will not use oxygen but she will leave tomorrow if she is still seemingly needing an oxygen prescription. 4. Switch from IV to oral 3rd generation cefpodoxime 200 mg twice daily. Continue with oral doxycycline. Continue with oral prednisone for now. 5. Patient pre contemplative about smoking cessation. 6. Patient agreeable with above stated plans and recommendations. Time Spent With Patient Total time spent: 40 minutes Subjective Time Seen by Provider: 09:00 Date Seen: 09/28/22 Interval history: No acute events overnight. Ariadne is trying to wean off of supplemental oxygen. She has no chest pain. Working on ADLs (difficult with L humeral fracture; L hand dominant). She is reluctant to go home today. Exam Narrative: Exam Narrative: No acute distress. Alert, oriented to self, place, time, situation. Talkative, friendly. As I visit with her her saturations are 85-88% on room air. She declines to allow is to give her oxygen supplementation initially then allows us to initiate low-flow oxygen via nasal cannula and her saturations improved to the 88 89% range. Bibasilar fine end-inspiratory rales. Scattered rhonchi. No wheezing. Prolonged expiratory phase. Heart tones with regular rhythm, normal S1-S2. Abdomen with active bowel sounds, soft, nontender. Extremities with only trace edema pretibially bilaterally. Moves all 4 extremities. Independent transfer, station, gait. Const: Vital Signs, click to edit/add: Vital Signs - 24 hr 09/27/22 16:00 09/27/22 16:00 09/27/22 16:00 Temperature Pulse Rate Pulse Rate [Apical ] Pulse Rate [Pulse Oximeter] 84 Respiratory Rate 20 20 Blood Pressure [Ri ght Arm] Pulse Oximetry 90 90 Oxygen Delivery Me thod Room Air Oxygen Flow Rate 09/27/22 16:00 09/27/22 15:40 09/27/22 20:30 Temperature 98.5 F 98 F Pulse Rate 85 Pulse Rate [Apical ] 93 Pulse Rate [Pulse Oximeter] 84 Respiratory Rate 20 18 Blood Pressure [Ri ght Arm] 184/70 H 215/113 H Pulse Oximetry 90 92 Oxygen Delivery Me thod Room Air Room Air Oxygen Flow Rate 09/27/22 23:00 09/27/22 23:00 09/27/22 20:00 Temperature Pulse Rate 95 Pulse Rate [Apical ] Pulse Rate [Pulse Oximeter] Respiratory Rate 18 Blood Pressure [Ri ght Arm] Pulse Oximetry 94 94 Oxygen Delivery Me thod Room Air Oxygen Flow Rate 09/28/22 02:44 09/28/22 03:00 09/28/22 09:00 Temperature Pulse Rate 3 L Pulse Rate [Apical ] Pulse Rate [Pulse Oximeter] Respiratory Rate 18 Blood Pressure [Ri ght Arm] Pulse Oximetry 90 Oxygen Delivery Me thod Oxygen Flow Rate 09/28/22 08:55 09/28/22 09:00 09/28/22 09:00 Temperature 97.8 F Pulse Rate Pulse Rate [Apical ] Pulse Rate [Pulse Oximeter] 75 Respiratory Rate 20 [facility] 197/78 H Pulse Oximetry 81 L 90 90 Oxygen Delivery Me thod Room Air Nasal Cannula Nasal Cannula Oxygen Flow Rate 1 1 09/28/22 09:00 09/28/22 11:00 Temperature 98.1 F Pulse Rate Pulse Rate [Apical ] Pulse Rate [Pulse Oximeter] 75 62 Respiratory Rate 20 20 Blood Pressure [[facility]] 184/55 H Pulse Oximetry 89 Oxygen Delivery Me thod Nasal Cannula Oxygen Flow Rate 1 Documenting provider has reviewed patient's vital signs: yes
--- NOTE | 2022-09-28 19:59 | PC.NURSE ---
Pt up in room independently. Rates pain5/10 with scheduled and PRN meds. 1L O2 sats hold 88-91%. Pt napped on/off most of day. Pleasant and cooperative
[2022-09-28] MEDS: ENOXAPARIN 40 MG/0.4 ML INJ SUBCUT (20:50)
[2022-09-28] MEDS: ATORVASTATIN CALCIUM 40 MG TABLET 80 MG PO (20:50)
[2022-09-28] MEDS: NIFEdipine 30 MG TAB.ER.24 90 MG PO (20:51)
[2022-09-29 03:00] VITALS: BP 169/76; PULSE 72; RESP 20; TEMP 36.6; O2SAT 92
[2022-09-29] MEDS: ACETAMINOPHEN 500 MG TABLET 1000 MG PO (04:19)
[2022-09-29] MEDS: OMEPRAZOLE 20 MG CAPSULE DR PO (06:21)
[2022-09-29] MEDS: IPRAT-ALBUT 0.5-2.5 MG/3 ML NEB 1 NEB IH ×3 (06:24→12:58)
--- NOTE | 2022-09-29 06:56 | PC.NURSE ---
23-07: pleasant and cooperative. Indep in room. Pt on 1L O2 via NC throughout shift, maintaining 88-92%. Non productive moist cough. Encouraging aerobika use when awake. Pt on RA when ambulating to BR, desated to 77%, 1L NC applied, rebounded quickly.
[2022-09-29 07:30] VITALS: BP 174/62; PULSE 65; RESP 18; RESP 20; TEMP 36.5; O2SAT 87; O2SAT 90
[2022-09-29] MEDS: Umeclidinium [Incruse Ellipta] 62.5 mcg/actuation 1 EACH IH (08:30)
[2022-09-29] MEDS: EZETIMIBE 10 MG TABLET PO (08:31)
[2022-09-29] MEDS: ISOSORBIDE MONONITRATE ER 30 MG TAB PO (08:31)
[2022-09-29] MEDS: FEXOFENADINE 180 MG TABLET PO (08:31)
[2022-09-29] MEDS: allopurinoL 100 MG TABLET PO (08:31)
[2022-09-29] MEDS: guaiFENesin 600 MG TAB.ER.12H PO (08:31)
[2022-09-29] MEDS: carvediloL 25 MG TABLET PO (08:32)
[2022-09-29] MEDS: DOXYCYCLINE HYCLATE 100 MG CAPSULE PO (08:32)
[2022-09-29] MEDS: LOSARTAN POTASSIUM 50 MG TABLET 100 MG PO (08:32)
[2022-09-29] MEDS: SERTRALINE 50 MG TABLET PO (08:33)
[2022-09-29] MEDS: predniSONE 20 MG TABLET 40 MG PO (08:33)
[2022-09-29] MEDS: CEFPODOXIME PROXETIL 200 MG TABLET PO (08:35)
[2022-09-29 10:10] VITALS: O2SAT 77; O2SAT 90; O2SAT 94
--- NOTE | 2022-09-29 10:51 | RESP.3PART ---
3 Part Home O2 Testing Summary RT 3 Part Home O2 Testing Summary Start: 09/28/22 10:41 Freq: Status: Active Protocol: Document 09/29/22 10:10 RONNIE (Rec: 09/29/22 10:11 RONNIE [id number]) 3 Part Home O2 Testing Summary The following is a summary of the 3 Part O2 Testing Evaluation Date/Time of Testing Date 09/29/22 Time 10:00 Insurance Policy Number [id number] Step 1 SAT on room air at rest (%) 94 Step 2 SAT on room air while exercising (%) 77 Step 3 SAT on supplemental O2 while exercising 90 (%) Liters of supplemental O2 needed while 4 exercising (L) O2 Delivery O2 delivered via Nasal Cannula Comments Comments Patient SAT on room air at rest is 94%. Patient SAT on room air with activity is 77% and requires 4L NC to keep SAT at 90%.
--- NOTE | 2022-09-29 11:10 | W.PM.HOT ---
Acute Home Oxygen Therapy Acute Home Oxygen Therapy Diagnosis for Oxygen Therapy (1) COPD (chronic obstructive pulmonary disease): Comment: - started on Prednisone in addition to antibiotics, recommend taper upon discharge Code(s): J44.9 - Chronic obstructive pulmonary disease, unspecified Provider Note Provider Note: Patient was admitted on 09/26/22 at 15:19 and will be discharging on 09/29/22. Patient is desaturating with SATs of 77% on room air due to Chronic Obstructive Pulmonary Disease. Alternative therapies have been attempted and have not been successful in maintaining the patient's saturation level above 88%. Supplemental O2 is required. This patient is mobile within the home and requires portability.
[2022-09-29] MEDS: OXYCODONE 5 MG TABLET PO (11:15)
[2022-09-29 11:22] VITALS: BP 175/86; PULSE 66; RESP 18; TEMP 36.7; O2SAT 91
[2022-09-29 12:25] VITALS: BP 156/67; PULSE 3; RESP 18; TEMP 36.7
--- NOTE | 2022-09-29 12:32 | PC.SOCIAL ---
Discharge plan: Met with pt regarding MD order for home oxygen. Pt is requesting psychiatric social worker contact [facility] as they had previously suplied her with home oxygen adn she had been pleased with their service. Faxed required information to [facility] intake for follow up.
--- NOTE | 2022-09-29 14:51 | PC.SOCIAL ---
Discharge planning: Received call from [facility] stating pt can be discharge home with portable oxygen from [facility] at the hospital already. [facility] requested that pt call their patient financial department to discuss and outstanding balance she has from previous home oxygen use. Met with pt who is aware of the outstanding balance and was appreciative fo the information provided. She states she will call them to resolve the outstanding balance situation.
[2022-09-29 15:15] VITALS: BP 155/53; PULSE 74; RESP 18; TEMP 36.7; O2SAT 91; O2SAT 94
--- NOTE | 2022-09-29 17:00 | PC.NURSE ---
Discharge, pt has been pleasant. no behaviors/ left arm pain and arm is in a sling. pain 0-6/10 she is getting po oxycodone. she said no to Tylenol. Pt up in room independently. she was 77% on RA with walking. she is on 2L at rest and 3 L with activity. Has good CMS to left arm and fingers. no SL. went over discharge packet, went over new meds, appointments. education and instructions. pt went over and signed personal belong sheet. all paperwork and belongings packet up. she got a w/c ride with o2 to her ride and was helped in to the van
--- NOTE | 2022-09-29 17:09 | PM.DS1 ---
DS: Providers Provider Time Seen by Provider: 09:00 Date Seen: 09/29/22 Date of admission: 09/26/22 15:19 Primary care physician: Veronica Florez DO Admitting Clinician: Jerardo Miranda MD Consults: 09/26/22 15:19 Consult to Physical Therapy [CONS] Routine Comment: Reason(s) for PT Consult:: Evaluate and Treat Any Restrictions?:: See Comment Comment: humerus fx Consult to Respiratory Therapy [CONS] Routine Comment: Reason(s) for RT Consult:: Smoking Cessation 09/26/22 18:08 Consult to Occupational Therapy [CONS] Routine Comment: Reason(s) for OT Consult:: ADLs Prior to Discharge Any Restrictions?:: See Comment Comment: left arm in sling Consult to Physical Therapy [CONS] Routine Comment: Reason(s) for PT Consult:: Recent Falls Any Restrictions?:: See Comment Attending Physician on discharge: Jaylen Rodriguez MD Date of Discharge: 09/29/22 DS: Diagnosis Discharge Diagnosis (1) Pneumonia: Status: Acute Problem details: - discontinue Ceftriaxone and Azithromycin and switched to cefpodoxime 200 mg orally twice daily and continue with oral doxycycline 100 mg twice daily. (2) Acute respiratory failure with hypoxia: Status: Acute Problem details: - multifactorial: History of COPD, new right lower lobe pneumonia, narcotic use from recent fracture - appreciate input from RT, continue to wean oxygen as tolerated - Patient high risk for complications given above-noted findings (3) COPD (chronic obstructive pulmonary disease): Status: Acute Problem details: - started on Prednisone in addition to antibiotics, recommend taper upon discharge (4) Elevated troponin: Status: Acute Problem details: - only POC troponin checked; will obtain serum troponin from morning labs 09/27 - likely 2/2 demand ischemia from COPD exacerbation and PNA - TTE obtained: Normal LV function with EF 60-65%, mild LVH, mild left atrial enlargement, mild aortic and mitral valve insufficiency. (5) Hypertension: Status: Acute Problem details: - home medications held on admission given hypotension; restarted 09/27 (6) Closed fracture of surgical neck of left humerus: Status: Acute Problem details: - doing well with sling, therapies following DS: Summary Hospital Course Hospital Course: Ariadne Miranda is a 76 year old female hx of COPD (active tobacco use), HTN, recent left proximal humerus on 09/21 after slipping on the ice outside of her car.? She presented to the [facility] ER then for further evaluation.? Her arm was placed in a sling and she was advised to follow-up with Orthopedics within one week. She presented to clinic today and was noted to be hypoxic 85% O2 Saturation at rest; 77% with activity. The patient was referred to ED for evaluation. she endorses left shoulder pain, but denies chest pain. Endorses SOb and subjective fever along with cough. In the ED CT PE study was negative for PE, but did show Right lower lobe consolidation, LV dilation suggestive of LV failure with severe CAD, moderate to severe emphysema. In the ED the patient was placed on high flow oxygen; started on ceftriaxone and azithromycin and admitted for further evaluation. ? CT PE IMPRESSION: 1. No evidence of pulmonary embolus. 2. Consolidation in the right lower lobe suspicious for pneumonia. 3. Left ventricular dilatation suggesting left ventricular failure with severe coronary atherosclerosis. 4. Moderate to severe centrilobular emphysema. 5. Indeterminate slightly hyperdense lesion at the upper pole the right kidney measuring 2.0 centimeters. Follow-up outpatient renal ultrasound suggested for further characterization. 6. Other incidental findings as detailed above. Continued to require oxygen throughout the rest the hospitalization. Eventually did not require oxygen at rest but continue to require oxygen with activity. Required 4 L of oxygen per minute via nasal cannula with any activity to maintain oxygen saturations greater than or equal to 90%. Initially she declined home oxygen therapy. In time she reconsidered and was agreeable to the same. Switched her to oral antibiotics at time of discharge. Tolerated well. Status at Discharge Overall status at discharge: patient is progressing back to baseline Time Spent with Patient Time attestation: Total time spent providing and/or coordinating discharge services: Time spent: Greater than 30 minutes Exam Narrative: Exam Narrative: No acute distress.? Alert, oriented to self, place, time, situation.? Talkative, friendly. As I visit with her her saturations are 85-88% on room air.? She declines to allow is to give her oxygen supplementation initially then allows us to initiate low-flow oxygen via nasal cannula and her saturations improved to the 88 89% range. Bibasilar fine end-inspiratory rales.? Scattered rhonchi.? No wheezing.? Prolonged expiratory phase. Heart tones with regular rhythm, normal S1-S2. Abdomen with active bowel sounds, soft, nontender.? Extremities with only trace edema pretibially bilaterally.? Moves all 4 extremities. Independent transfer, station, gait. Const: Vital Signs, click to edit/add: Vital Signs - 24 hr 09/28/22 19:00 09/28/22 23:00 09/28/22 23:00 Temperature 98.1 F Pulse Rate Pulse Rate [Apical ] 78 Pulse Rate [Pulse Oximeter] 67 77 Respiratory Rate 18 22 Blood Pressure Blood Pressure [Ri ght Arm] 167/71 H Pulse Oximetry 89 88 Oxygen Delivery Me thod Room Air Oxygen Flow Rate 09/28/22 23:00 09/28/22 23:00 09/29/22 03:00 Temperature 97.7 F 97.8 F Pulse Rate Pulse Rate [Apical ] Pulse Rate [Pulse Oximeter] 77 72 Respiratory Rate 22 22 20 Blood Pressure Blood Pressure [Ri ght Arm] 169/67 H 169/76 H Pulse Oximetry 88 88 92 Oxygen Delivery Me thod Room Air Nasal Cannula Nasal Cannula Oxygen Flow Rate 1 1 1 09/29/22 07:30 09/29/22 07:30 09/29/22 07:30 Temperature 97.7 F Pulse Rate Pulse Rate [Apical ] Pulse Rate [Pulse Oximeter] 65 Respiratory Rate 20 18 Blood Pressure Blood Pressure [Ri ght Arm] 174/62 H Pulse Oximetry 90 87 L 87 L Oxygen Delivery Me thod Room Air Room Air Oxygen Flow Rate 09/29/22 07:30 09/29/22 11:22 09/29/22 12:25 Temperature 98.0 F 98.0 F Pulse Rate 3 L Pulse Rate [Apical ] Pulse Rate [Pulse Oximeter] 65 66 Respiratory Rate 18 18 18 Blood Pressure 156/67 H Blood Pressure [Ri ght Arm] 175/86 H Pulse Oximetry 91 Oxygen Delivery Me thod Nasal Cannula Oxygen Flow Rate 2 09/29/22 15:15 09/29/22 15:15 09/29/22 15:15 Temperature 98.0 F Pulse Rate Pulse Rate [Apical ] Pulse Rate [Pulse Oximeter] 74 Respiratory Rate 18 18 Blood Pressure Blood Pressure [Ri ght Arm] 155/53 H Pulse Oximetry 94 91 94 Oxygen Delivery Me thod Nasal Cannula Nasal Cannula Oxygen Flow Rate 2 2 09/29/22 15:15 Temperature Pulse Rate Pulse Rate [Apical ] Pulse Rate [Pulse Oximeter] 74 Respiratory Rate 18 Blood Pressure Blood Pressure [Ri ght Arm] Pulse Oximetry Oxygen Delivery Me thod Oxygen Flow Rate Documenting provider has reviewed patient's vital signs: yes Discharge Plan Discharge Disposition: Home, Self-Care Date of Admission: 09/26/22 15:19 Attending Provider on Discharge: Jaylen Rodriguez Primary Care Provider: Veronica Florez Condition: Improved Anticipated Discharge Date/Time: 09/29/22 14:00 Discharge Medications: New (DME) Home Oxygen Misc See Rx Instructions .Route Qty: 1 0RF Rx Instructions: O2 4 LPM via NC with activity doxycycline hyclate 100 mg Capsule 100 mg PO BID 3 Days Qty: 6 0RF cefpodoxime 200 mg Tablet 200 mg PO BID 3 Days Qty: 6 0RF prednisone 20 mg Tablet 40 mg PO DAILYWM 3 Days Qty: 6 0RF Nicotrol 10 mg cartridge 1 inh inhalation Q2-4H PRN (Reason: nicotine cravings) Qty: 168 1RF Rx Instructions: 100% smoking cessation ipratropium-albuterol 0.5 mg-3 mg(2.5 mg base)/3 mL Solution For Nebulization 1 neb inhalation QID 30 Days Qty: 120 1RF Continued atorvastatin 80 mg tablet 80 mg PO HS Label Comments: TAKE ONE TABLET BY MOUTH ONE TIME DAILY carvedilol 25 mg tablet 25 mg PO BID Label Comments: TAKE ONE TABLET BY MOUTH TWICE A DAY WITH MEALS nystatin 100,000 unit/mL suspension 5 ml mucous membrane QID PRN Label Comments: Swish and swallow 5 mL by mouth 4 times daily Rx Instructions: FOR THRUSH FROM [facility] nifedipine 90 mg tablet extended release 90 mg PO HS Label Comments: TAKE ONE TABLET BY MOUTH ONE TIME DAILY BEFORE A MEAL. isosorbide mononitrate 30 mg tablet extended release 24 hr 30 mg PO DAILY Label Comments: Take 1 Tablet (30 mg) by mouth once daily. fexofenadine 180 mg tablet 180 mg PO DAILY Label Comments: TAKE ONE TABLET BY MOUTH ONE TIME DAILY allopurinol 100 mg tablet 100 mg PO DAILY Label Comments: TAKE ONE TABLET BY MOUTH ONE TIME DAILY omeprazole 20 mg capsule,delayed release(DR/EC) 20 mg PO DAILY Label Comments: TAKE ONE CAPSULE BY MOUTH ONE TIME DAILY BEFORE A MEAL. albuterol sulfate 90 mcg/actuation HFA aerosol inhaler 2 puff INHALATION Q6H PRN Label Comments: INHALE TWO PUFFS BY MOUTH EVERY SIX HOURS NEEDED FOR COUGH losartan 100 mg tablet 100 mg PO DAILY Label Comments: TAKE ONE TABLET BY MOUTH ONE TIME DAILY ezetimibe 10 mg tablet 10 mg PO DAILY Label Comments: TAKE ONE TABLET BY MOUTH ONE TIME DAILY budesonide-formoterol [Symbicort] 80-4.5 mcg/actuation HFA aerosol inhaler 2 puff INHALATION Q12H Incruse Ellipta 62.5 mcg/actuation blister with device 1 inh INHALATION DAILY Label Comments: INHALE ONE PUFF BY MOUTH ONE TIME DAILY. DISCARD INHALER AFTER 6 WEEKS OR WHEN COUNTER READS 0. sertraline 50 mg tablet 50 mg PO DAILY Label Comments: TAKE ONE TABLET BY MOUTH ONE TIME DAILY acyclovir 400 mg tablet 400 mg PO TID PRN Rx Instructions: TAKE THREE TIMES A DAY FOR 5 DAYS IF NEEDED FOR HERPES FLARE baclofen 10 mg tablet 10 mg PO QHS PRN cholecalciferol (vitamin D3) 50 mcg (2,000 unit) tablet 50 mcg PO DAILY diclofenac sodium [Voltaren Arthritis Pain] 1 % gel 2 g topical QID PRN Rx Instructions: TO PAINFUL JOINTS NEEDED oxycodone 5 mg tablet 5 mg PO Q6H PRN trazodone 50 mg tablet 25 - 50 mg PO HS PRN Centrum Silver Women 8 mg iron-400 mcg-300 mcg tablet 1 tab PO DAILY Discharge Orders: Discharge Order (Routine); Ordered 09/29/22 Ordered By: Jaylen Rodriguez Patient Education: Doxycycline (By mouth), Prednisone (By mouth), Cefpodoxime Proxetil (By mouth), Ipratropium/Albuterol (By breathing), Nicotine (By breathing) (Nicotrol), How to Stop Smoking (GEN), Using Oxygen at Home (DC), Using Oxygen at Home (GEN), COPD (Chronic Obstructive Pulmonary Disease) (DC), Pneumonia (DC) Additional Instructions: 1. 100% smoking cessation - continue with knitting, quilting, etc! ; 2. Follow-up and cares regarding L arm/shoulder fracture as previously established per orthopedic surgery; 3. Follow-up with primary care physician in 1-2 weeks; 4. Return to clinic or hospital sooner if needed; 5. Oxygen 4 Liters per minute via nasal canula with activity. Activity Level: Activity as Tolerated Activity Detail: Restrictions regarding L arm fracture as previously outlined per orthopedic surgery Discharge Diet: Regular Follow Up Appointments: Veronica Florez DO [Primary Care Provider] - 10/09/22 1:05 pm Forms: Chance (app)ealth Info Instructions
== END 2022-09-29 16:31 | disposition home or self-care (01) | DRG 189 ==
LOC: ED 15:17 → MEDSURG 15:18
PROVIDERS: Family Medicine; Admitting Provider Hospitalist; Emergency Provider Emergency Medicine; PCP Family Medicine; Visit Provider Hospitalist
DX: J96.01 Acute respiratory failure with hypoxia (principal); J18.9 Pneumonia, unspecified organism; J44.0 Chronic obstructive pulmonary disease with (acute) lower respiratory infection; J44.1 Chronic obstructive pulmonary disease with (acute) exacerbation; I13.0 Hypertensive heart and chronic kidney disease with heart failure and stage 1 through stage 4 chronic kidney disease, or unspecified chronic kidney disease; I24.8 Other forms of acute ischemic heart disease; F17.210 Nicotine dependence, cigarettes, uncomplicated; I50.9 Heart failure, unspecified; N18.30 Chronic kidney disease, stage 3 unspecified; S42.212D Unspecified displaced fracture of surgical neck of left humerus, subsequent encounter for fracture with routine healing; K21.9 Gastro-esophageal reflux disease without esophagitis; I25.10 Atherosclerotic heart disease of native coronary artery without angina pectoris; M10.9 Gout, unspecified; G62.9 Polyneuropathy, unspecified; E78.00 Pure hypercholesterolemia, unspecified; I89.0 Lymphedema, not elsewhere classified; M81.0 Age-related osteoporosis without current pathological fracture; F32.A Depression, unspecified
CPT/HCPCS: 36415; 71260; 80048; 80076; 82803; 83880; 84145; 84484; 85025; 85379; 85610; 85730; 86140; 87502; 87634; 87635; 93005; 93306; 94640; 94664; 94761; 97112; 97116; 97162; 97165; 97535; 99284; 99285; A9270; J0696; J1170; J1650; J2930; J7050; J7512; Q9967

== ENCOUNTER 2022-10-11 05:16 | Outpatient (CLI) | payer MEDICARE, SELFPAY | END 2022-10-11 05:17 | disposition home or self-care (01) | LOC: AMB 10-12 03:28 | PROVIDERS: PCP Family Medicine; Visit Provider Family Medicine | DX: R06.02 Shortness of breath (principal) ==

== ENCOUNTER 2022-11-08 16:41 | Observation (INO) | payer MEDICARE, SELFPAY ==
[2022-11-08] VITALS (12 sets, daily range): BP systolic 141–189; BP diastolic 62–80; PULSE 58–71; RESP 18–20; TEMP 36.4–36.6; O2SAT 81–94; BMI 23.8; BMI 25.7
--- NOTE | 2022-11-08 17:30 | CRLHL7_ITS ---
For Patients: As a result of the Century Cures Act, medical imaging exams and procedure reports are released immediately into your electronic medical record. You may view this report before your referring provider. If you have questions, please contact your health care provider. INDICATION: hypoxia TECHNIQUE: Chest 1 view. COMPARISON: None. FINDINGS: Cardiovascular and mediastinum: Heart size and vasculature are normal in caliber and appearance. Mediastinum is within normal limits. Lungs and pleural space: Lungs are clear. No sign of infiltrate or mass. No sign of pleural effusion. No pneumothorax. Bones and soft tissues: No significant findings. IMPRESSION: Unremarkable chest. Dictated by: Marcus Kaplan MD @ 11/08/2022 18:01:36 (Electronically Signed)
--- NOTE | 2022-11-08 17:34 | ED.WEAKNESS ---
HPI - Weakness General Chief complaint: Weakness Stated complaint: Low Potassium Time Seen by Provider: 11/08/22 16:57 History of Present Illness HPI Narrative: 77-year-old woman with history of COPD and hypoxia with concern of altered mental status. She feels fuzzy in her head and generally weak. No fever. No cough or cold symptoms. Does continue to smoke. She has discontinued her on oxygen about a 2 weeks ago around the same time hot also stopped taking her medications. Presented yesterday in clinic apparently with a blood pressure of 230 systolic over 110 and potassium 2.7. I asked her why she discontinued her oxygen it sounds like some oxygen suppliers/agency suggest that she did not need it (speaking later with hospitalist who is familiar with her case noted that was to only be on oxygen with exertion/as needed) She says that she normally is between 80 and 85%. She does not feel actually short of breath. Continues to smoke. Since visit yesterday she has restarted her blood pressure medications and arrives relatively normotensive. She admits that perhaps it is lack of oxygen is contributing to her fuzzy thinking. On follow-up in clinic today was noted to be with a potassium of 2.4. Magnesium has been normal. Was mentating supposedly normally today. Incidental finding recently also was a head CT showing a subacute stroke. Review in clinic notes see that there was QT prolongation noted on EKG and so was told to discontinue sertraline and trazodone. was also initiated on Plavix today. Aspirin was discontinued. Recently also sustained a left side humeral neck fracture. This has been limiting some of her activities. She does enjoy knitting. Has lost 20 lb since last year April or so. Unintentional. Related Data Home Medications Medication Instructions Recorded Confirmed allopurinol 100 mg tablet 100 mg PO DAILY 09/26/22 11/09/22 atorvastatin 80 mg tablet 80 mg PO HS 09/26/22 11/09/22 budesonide-formoterol HFA 80 2 puff inhalation Q12H 09/26/22 11/09/22 mcg-4.5 mcg/actuation aerosol inhaler (Symbicort) carvedilol 25 mg tablet 25 mg PO BID 09/26/22 11/09/22 diclofenac sodium 1 % topical gel 2 g topical QID PRN 09/26/22 11/09/22 (Voltaren Arthritis Pain) ezetimibe 10 mg tablet 10 mg PO DAILY 09/26/22 11/09/22 fexofenadine 180 mg tablet 180 mg PO DAILY 09/26/22 11/09/22 isosorbide mononitrate 30 mg 30 mg PO DAILY 09/26/22 11/09/22 tablet,extended release 24 hr losartan 100 mg tablet 100 mg PO DAILY 09/26/22 11/09/22 nifedipine 90 mg tablet,extended 90 mg PO HS 09/26/22 11/09/22 release nystatin 100,000 unit/mL oral 5 ml mucous membrane QID PRN 09/26/22 11/09/22 suspension omeprazole 20 mg capsule,delayed 20 mg PO DAILY 09/26/22 11/09/22 release umeclidinium 62.5 mcg/actuation 1 inh inhalation DAILY 09/26/22 11/09/22 blister powder for inhalation (Incruse Ellipta) multivit with 1 tab PO DAILY 09/27/22 11/09/22 cnjityyj-fiwq-VK-lutein 8 mg iron-400 mcg-300 mcg tablet (Centrum Silver Women) cholecalciferol (vitamin D3) 25 25 mcg PO DAILY 11/09/22 11/09/22 mcg (1,000 unit) capsule ketoconazole 2 % topical cream 1 applic topical BID PRN 11/09/22 11/09/22 Previous Rx's Medication Instructions Recorded Home Oxygen #1 ea 09/29/22 aspirin 325 mg tablet,delayed 325 mg PO DAILY #30 tabs 11/10/22 release ipratropium 0.5 mg-albuterol 3 mg 3 ml inhalation QID #90 mL 11/10/22 (2.5 mg base)/3 mL nebulization soln potassium chloride 20 mEq 20 meq PO BID #60 tabs 11/10/22 tablet,extended release sertraline 50 mg tablet 50 mg PO DAILY #30 tabs 11/10/22 Allergies Allergy/AdvReac Type Severity Reaction Status Date / Time clonidine Allergy Verified 11/08/22 16:52 Review of Systems Status of ROS: Reports: 10 or more systems reviewed and unremarkable except as noted in History and below [facility] Medical History (Updated 11/10/22 @ 16:14 by Marialuisa Kessler MD) Cerebrovascular disease CKD (chronic kidney disease), stage III COPD (chronic obstructive pulmonary disease) Embolic stroke History of multiple strokes Hyperlipidemia Hypertension Lymphedema Non compliance with medical treatment Osteoporosis Proximal humeral fracture Surgical History Hx of appendectomy S/P PRERNA-BSO Social History Highest level of school completed/degree received: some college, no degree Smoking Status: Current every day smoker What tobacco products do you use: cigarettes Smoking packs per day: 1 Smoking cigarettes per day: 20.0 Years smoked: 50 Smoking pack-years: 50.00 Second hand tobacco smoke exposure: Yes (spouse also smokes) How often do you have a drink containing alcohol: monthly or less Alcohol type: wine How often do you have six or more drinks on one occasion: Never AUDIT-C Alcohol total score: 1 Non-prescribed substance use: denies use Caffeine: Yes (coffee and soda gallons) service: No Exam Narrative: Exam Narrative: Pleasant. Answers questions quickly relatively easily. She is breathing easily albeit through pursed lips. Oropharynx is hyperemic and quite dry. Cranial nerves 2-12 look to be intact. She does have trouble moving her left arm; pain present at the shoulder. suspect is getting some degree of frozen shoulder here. Left lower leg is little larger than the right she says this is chronic. She does have mild lower extremity dependent edema. Nonpitting. Lungs diminished breath sounds but diffusely present. Crepitus more in the right lower lung. Heart is with a regular rate and rhythm-somewhat slow borderline bradycardic. Abdomen is soft protuberant nontender. Prominent vasculature the right upper chest but not really telangiectasias. Const: Vital Signs, click to edit/add: Vital Signs - 24 hr 11/08/22 16:52 11/08/22 18:51 11/08/22 18:57 Temperature 97.8 F Pulse Rate Pulse Rate [Pulse Oximeter] 58 L Respiratory Rate 20 18 Blood Pressure [Ri ght Upper Arm] 141/62 H Pulse Oximetry 85 L 92 94 Oxygen Delivery Me thod Room Air Nasal Cannula Oxygen Flow Rate 2 11/08/22 17:44 11/08/22 17:45 11/08/22 18:00 Temperature Pulse Rate 66 68 63 Pulse Rate [Pulse Oximeter] Respiratory Rate Blood Pressure [Ri ght Upper Arm] Pulse Oximetry 81 L 84 L 85 L Oxygen Delivery Me thod Oxygen Flow Rate 11/08/22 18:15 11/08/22 18:30 11/08/22 18:35 Temperature Pulse Rate 71 64 65 Pulse Rate [Pulse Oximeter] Respiratory Rate Blood Pressure [Ri ght Upper Arm] Pulse Oximetry 90 93 92 Oxygen Delivery Me thod Oxygen Flow Rate 11/08/22 18:45 Temperature Pulse Rate 63 Pulse Rate [Pulse Oximeter] Respiratory Rate Blood Pressure [Ri ght Upper Arm] Pulse Oximetry 93 Oxygen Delivery Me thod Oxygen Flow Rate Documenting provider has reviewed patient's vital signs: yes Course Course Hospital Course: 77-year-old female, admitted to the hospital after being seen in the clinic for confusion and word-finding difficulties, in the setting of hypokalemia. Patient had an abnormal head CT prior to admission, MRI obtained and findings noted above. Reviewed with Neurology by phone, recommend aspirin daily with outpatient neurology follow-up. Minimal deficits noted, although patient did continue to have intermittent word-finding difficulties. During stay, Ariadne was seen by therapies, + recommendation for outpatient OT to perform further cognitive workup, patient pre contemplative. No physical therapy recommendations upon discharge. Patient also noted to have significant hypokalemia, responded well to supplementation. She will continue supplementation upon discharge with close PCP follow-up and a BMP early next week. We discussed the importance of medication compliance, patient verbalized understanding. She felt back to baseline and is requesting discharge home on 11/10/2022. Vital Signs Vital signs: Initial Vital Signs Temperature 97.8 F 11/08/22 16:52 Temperature Source Temporal Artery Scan 11/08/22 16:52 Pulse Rate 58 L 11/08/22 16:52 Pulse Rhythm 11/08/22 16:52 Respiratory Rate 20 11/08/22 16:52 Blood Pressure 141/62 H 11/08/22 16:52 Blood Pressure Mean 88 11/08/22 16:52 Blood Pressure Position Supine 11/08/22 16:52 Pulse Oximetry 85 L 11/08/22 16:52 Oxygen Delivery Method 11/08/22 16:52 Vital Signs Temperature 97.8 F 11/08/22 16:52 Pulse Rate 58 L 11/08/22 16:52 Respiratory Rate 20 11/08/22 16:52 Blood Pressure 141/62 H 11/08/22 16:52 Pulse Oximetry 85 L 11/08/22 16:52 Oxygen Delivery Method 11/08/22 16:52 Temperature 97.7 F 11/10/22 14:22 Pulse Rate 58 L 11/10/22 14:22 Respiratory Rate 18 11/10/22 14:22 Blood Pressure 144/78 H 11/10/22 11:00 Pulse Oximetry 87 L 11/10/22 11:00 Oxygen Delivery Method 11/10/22 11:00 Oxygen Flow Rate 0 11/09/22 23:00 MDM - Weakness MDM Narrative Medical decision making narrative: I wonder if hypokalemia might be contributing to this appearance a prolonged QT which corrected is at 501. This is more than EKG from September. Subtle U waves? Would need to correct potassium levels before measurement of aldosterone levels for example. I do think that admission would more easily and rapidly facilitate this workup for hypokalemia in a patient who is not exactly reliable with medication management. From a respiratory perspective seems generally near baseline. Initiated on IV potassium bumps. I think admission here warranted for potassium replacement in severe hypokalemia. Discussed with hospitalist for admission. Medical Records Attestation: I reviewed the patient's medical records. Medical records narrative: was around 84% on room air on discharge september Lab Data Attestation: I reviewed the patient's lab results. Lab results narrative: Seems quite comfortable on rather low oxygen settings. Not acidotic not alkalotic; compensated. Labs: Lab Results 11/08/22 11/08/22 11/08/22 Range/Units 17:05 18:00 18:00 WBC 8.49 (4.50-11.00) K/uL RBC 5.33 H (4.00-5.20) m/uL Hgb 14.8 (12.0-16.0) gm/dL Hct 45.8 (33.0-51.0) % MCV 86 (80-100) fL MCH 28 (26-34) pg MCHC 32 (32-36) gm/dL RDW Coeff of Bart 14.2 (11.5-15.5) % Plt Count 216 (140-440) K/uL Neut % (Auto) 59.9 (42.0-72.0) % Lymph % (Auto) 29.7 (20-44) % Posey % (Auto) 7.7 (0.0-11.0) % Eos % (Auto) 2.4 (0.0-7.0) % Baso % (Auto) 0.1 (0.0-3.0) % Neut # (Auto) 5.09 (1.7-7.0) K/uL Lymph # (Auto) 2.52 (0.90-2.90) K/uL Posey # (Auto) 0.70 (0.00-0.90) K/UL Eos # (Auto) 0.20 (0.00-0.50) K/uL Baso # (Auto) 0.01 (0.00-0.30) K/uL D-Dimer Quant (PE/DVT) 0.83 H (0.00-0.50) ug/ml VBG pH (7.32-7.43) VBG pCO2 (40-50) mmHG VBG pO2 (25-47) mmHG VBG HCO3 (21-28) mmol/L Sodium (135-149) mmol/L Potassium (3.6-5.1) mmol/L Chloride (96-114) mmol/L Carbon Dioxide (20-32) mmol/L BUN (7-30) mg/dL Creatinine (0.5-1.5) mg/dL Estimated Creat Clear Estimated GFR ml/min Glucose (60-115) mg/dL Calcium (8.4-10.6) mg/dL Magnesium (1.5-2.6) mg/dL Troponin I (0.01-0.04) ng/mL C-Reactive Protein (0.5-1.0) mg/dL NT-Pro-B Natriuret Pep pg/mL TSH (0.270-4.20) uIU/mL SARS-CoV-2 (PCR) Negative SARS-CoV-2 (Negative) Influenza Type A (PCR) Negative PCR FLU A (Negative) Influenza Type B (PCR) Negative PCR FLU B (Negative) RSV (PCR) Negative PCR RSV (Negative) 11/08/22 11/08/22 11/08/22 Range/Units 18:00 18:00 18:00 WBC (4.50-11.00) K/uL RBC (4.00-5.20) m/uL Hgb (12.0-16.0) gm/dL Hct (33.0-51.0) % MCV (80-100) fL MCH (26-34) pg MCHC (32-36) gm/dL RDW Coeff of Bart (11.5-15.5) % Plt Count (140-440) K/uL Neut % (Auto) (42.0-72.0) % Lymph % (Auto) (20-44) % Posey % (Auto) (0.0-11.0) % Eos % (Auto) (0.0-7.0) % Baso % (Auto) (0.0-3.0) % Neut # (Auto) (1.7-7.0) K/uL Lymph # (Auto) (0.90-2.90) K/uL Posey # (Auto) (0.00-0.90) K/UL Eos # (Auto) (0.00-0.50) K/uL Baso # (Auto) (0.00-0.30) K/uL D-Dimer Quant (PE/DVT) (0.00-0.50) ug/ml VBG pH 7.401 (7.32-7.43) VBG pCO2 55 H (40-50) mmHG VBG pO2 29.0 (25-47) mmHG VBG HCO3 34 H (21-28) mmol/L Sodium 141 (135-149) mmol/L Potassium 2.6 L* (3.6-5.1) mmol/L Chloride 104 (96-114) mmol/L Carbon Dioxide 31 (20-32) mmol/L BUN 10 (7-30) mg/dL Creatinine 0.9 (0.5-1.5) mg/dL Estimated Creat Clear 38.44 Estimated GFR 67 ml/min Glucose 121 H (60-115) mg/dL Calcium 11.0 H (8.4-10.6) mg/dL Magnesium 1.9 (1.5-2.6) mg/dL Troponin I 0.05 H (0.01-0.04) ng/mL C-Reactive Protein < 0.5 L (0.5-1.0) mg/dL NT-Pro-B Natriuret Pep 652 pg/mL TSH 1.220 (0.270-4.20) uIU/mL SARS-CoV-2 (PCR) (Negative) Influenza Type A (PCR) (Negative) Influenza Type B (PCR) (Negative) RSV (PCR) (Negative) Discharge Plan Discharge Clinical Impression: Respiratory failure, chronic, Weakness, Altered mental status, Acute hypokalemia Patient Disposition: Admitted As Inpatient Condition: Stable Discharge Diet: Regular
[2022-11-08 17:52] LABS: PCR FLU A Negative PCR FLU A (Negative); PCR FLU B Negative PCR FLU B (Negative); PCR RSV Negative PCR RSV (Negative)
[2022-11-08 17:53] LABS: SARS PCR* Negative SARS-CoV-2 (Negative)
[2022-11-08 18:12] LABS: HCO3 VBG 34 mmol/L (21-28); PCO2 VBG 55 mmHG (40-50); pH VBG 7.401 (7.32-7.43)
[2022-11-08 18:17] LABS: Basophils Absolute Auto 0.01 K/uL (0.00-0.30); Basophils Percent Auto 0.1 % (0.0-3.0); Eosinophils Percent Auto 2.4 % (0.0-7.0); Hematocrit 45.8 % (33.0-51.0); Hemoglobin* 14.8 gm/dL (12.0-16.0); Immature Granulocytes Abs Auto 0.02 K/uL (0.00-0.30); Immature Granulocytes Pct Auto 0.2 %; Lymphocytes Absolute Auto 2.52 K/uL (0.90-2.90); Lymphocytes Percent Auto 29.7 % (20-44); Mean Corpuscular HGB Conc 32 gm/dL (32-36); Mean Corpuscular Hemoglobin 28 pg (26-34); Mean Corpuscular Volume 86 fL (80-100); Monocytes Percent Auto 7.7 % (0.0-11.0); Neutrophils Absolute Auto 5.09 K/uL (1.7-7.0); Neutrophils Percent Auto 59.9 % (42.0-72.0); Platelet Count* 216 K/uL (140-440); RDW Coefficient of Variation % 14.2 % (11.5-15.5); Red Blood Count 5.33 m/uL (4.00-5.20); White Blood Count* 8.49 K/uL (4.50-11.00)
[2022-11-08 18:19] LABS: Slide Review Reflex No
[2022-11-08 18:35] LABS: Chloride* 104 mmol/L (96-114); Sodium* 141 mmol/L (135-149)
[2022-11-08 18:38] LABS: Creatinine* 0.9 mg/dL (0.5-1.5); Est. Creatinine Clearance* 38.44; Estimated Glomerular Filt Rate 67 ml/min
[2022-11-08 18:39] LABS: Blood Urea Nitrogen* 10 mg/dL (7-30); Carbon Dioxide* 31 mmol/L (20-32); Glucose* 121 mg/dL (60-115); Magnesium* 1.9 mg/dL (1.5-2.6)
[2022-11-08 18:42] LABS: D Dimer Quantitative* 0.83 ug/ml (0.00-0.50)
[2022-11-08] MEDS: 0.9 % SODIUM CHLORIDE 1000 ml 1,000 ML IV (18:47)
[2022-11-08 18:48] LABS: C Reactive Protein* < 0.5 mg/dL (0.5-1.0)
[2022-11-08] MEDS: POTASSIUM CHLORIDE 10 MEQ/100 ML PIGGYBACK 100 MEQ IVPB ×2 (18:48→20:13)
[2022-11-08 18:49] LABS: Potassium* 2.6 mmol/L (3.6-5.1)
--- NOTE | 2022-11-08 18:50 | ED.NURSE ---
lab called with critical K+ 2.6, dr. alex updated
[2022-11-08 18:51] LABS: Troponin I* 0.05 ng/mL (0.01-0.04)
[2022-11-08 18:59] LABS: NT Pro B Type NatriureticPept* 652 pg/mL
--- NOTE | 2022-11-08 22:18 | P.IMHP_ITS ---
Hospitalist- H&P: HPI History of Present Illness Time Seen by Provider: 21:30 Date Seen: 11/08/22 Chief complaint: Low Potassium Narrative: Ariadne Miranda is a 77 year old woman referred to our emergency department from her primary care physician, Dr. Veronica Florez, for further assessment of low potassium. For the last couple of weeks she has been experiencing symptoms of foggy brain, inability to carry out things that she normally enjoys doing like needing, more fatigue and sleepiness. Interestingly that is about the time she quit all of her medications. She was not instructed to do so by her physician, she elected to do so on her own. Reportedly her blood pressures had been running high during this time as high as 230/120. Was seen by her physician yesterday for these symptoms. Workup included a serum potassium that was 2.7. CT scan of the head without contrast was also performed which unexpectedly demonstrated a possible late subacute versus chronic stroke in the right cerebellum. Additionally remote ischemic changes of the brain with encephalomalacia of the left frontal and parietal lobes is noted. Lastly moderate chronic small vessel disease also seen on these CT sequences. With these findings it was recommended to the patient that she be admitted to the hospital yesterday. She refuse. Was given potassium supplementation, 40 mEq twice yesterday. Urged to return to the clinic today for recheck of potassium. Upon rechecking it with a point of care means, potassium was measured at 2.4 today. Significantly, potassium measurement yesterday and today were through different means of measurement. Interestingly patient indicates that she feels much better today than she did yesterday. Nevertheless because of the persistently low potassium measurement, patient now agreeable to come into the hospital for assessment. She is seen in the emergency department. The serum potassium today in our emergency department is measured at 2.6, essentially unchanged from yesterday. Review of Systems Status of ROS: Reports: 10 or more systems reviewed and unremarkable except as noted in History and below Narrative: Patient has not had obvious GI potassium wasting. Did decide to stop using her oxygen. Continues to smoke cigarettes daily. Does acknowledge dyspnea with exertion. No increase dyspnea or cough. Denies chest heaviness, pressure, tightness, or pain. Denies syncope or near-syncope. Denies palpitations. No fever, rigors, diaphoresis. Denies polyuria, polydipsia, polyphagia. Denies urinary frequency, urgency, dysuria, or hematuria. Denies focal motor neurologic deficits. On the other hand, although she enjoys knitting, she indicates that her brain has been somewhat foggy and she has been unable to concentrate sufficiently to carry out her usual needing activities. States her dyspnea is at baseline. She indicates that she quit her use of oxygen with exertion over the last couple weeks as well. Continues to smoke nevertheless. Now that she has been told that she has likely had a new stroke she indicates she is motivated to try to quit smoking altogether hereafter. [facility] Medical History (Updated 11/08/22 @ 22:48 by Jaylen Rodriguez MD) Cerebrovascular disease CKD (chronic kidney disease), stage III COPD (chronic obstructive pulmonary disease) History of multiple strokes Hyperlipidemia Hypertension Lymphedema Non compliance with medical treatment Osteoporosis Surgical History Hx of appendectomy S/P PRERNA-BSO Social History Highest level of school completed/degree received: some college, no degree Smoking Status: Current every day smoker What tobacco products do you use: cigarettes Smoking packs per day: 1 Smoking cigarettes per day: 20.0 Years smoked: 50 Smoking pack-years: 50.00 Second hand tobacco smoke exposure: Yes (spouse also smokes) How often do you have a drink containing alcohol: monthly or less Alcohol type: wine How often do you have six or more drinks on one occasion: Never AUDIT-C Alcohol total score: 1 Non-prescribed substance use: denies use Caffeine: Yes (coffee and soda gallons) service: No Meds Home Medications and Allergies Home Medications Medication Instructions Recorded Confirmed Type acyclovir 400 mg tablet 400 mg PO TID PRN 09/26/22 10/12/22 History albuterol sulfate 90 mcg/actuation 2 puff inhalation Q6H PRN 09/26/22 10/12/22 History aerosol inhaler allopurinol 100 mg tablet 100 mg PO DAILY 09/26/22 10/12/22 History atorvastatin 80 mg tablet 80 mg PO HS 09/26/22 10/12/22 History baclofen 10 mg tablet 10 mg PO QHS PRN 09/26/22 10/12/22 History budesonide-formoterol HFA 80 2 puff inhalation Q12H 09/26/22 10/12/22 History mcg-4.5 mcg/actuation aerosol inhaler (Symbicort) carvedilol 25 mg tablet 25 mg PO BID 09/26/22 10/12/22 History cholecalciferol (vitamin D3) 50 50 mcg PO DAILY 09/26/22 10/12/22 History mcg (2,000 unit) tablet diclofenac sodium 1 % topical gel 2 g topical QID PRN 09/26/22 10/12/22 History (Voltaren Arthritis Pain) ezetimibe 10 mg tablet 10 mg PO DAILY 09/26/22 10/12/22 History fexofenadine 180 mg tablet 180 mg PO DAILY 09/26/22 10/12/22 History isosorbide mononitrate 30 mg 30 mg PO DAILY 09/26/22 10/12/22 History tablet,extended release 24 hr losartan 100 mg tablet 100 mg PO DAILY 09/26/22 10/12/22 History nifedipine 90 mg tablet,extended 90 mg PO HS 09/26/22 10/12/22 History release nystatin 100,000 unit/mL oral 5 ml mucous membrane QID PRN 09/26/22 10/12/22 History suspension omeprazole 20 mg capsule,delayed 20 mg PO DAILY 09/26/22 10/12/22 History release oxycodone 5 mg tablet 5 mg PO Q6H PRN 09/26/22 10/12/22 History sertraline 50 mg tablet 50 mg PO DAILY 09/26/22 10/12/22 History trazodone 50 mg tablet 25 - 50 mg PO HS PRN 09/26/22 10/12/22 History umeclidinium 62.5 mcg/actuation 1 inh inhalation DAILY 09/26/22 10/12/22 History blister powder for inhalation (Incruse Ellipta) multivit with 1 tab PO DAILY 09/27/22 10/12/22 History bteocmtw-ncbp-WZ-lutein 8 mg iron-400 mcg-300 mcg tablet (Centrum Silver Women) Home Medication Comments: Once again, patient quit all of her medications about 2 weeks ago. Medicines were restarted yesterday per primary care physician except for the sertraline and trazodone. Up until yesterday she had been taking aspirin 81 mg daily. Starting today she initiated clopidogrel 75 mg once daily. Allergies Allergy/AdvReac Type Severity Reaction Status Date / Time clonidine Allergy Verified 11/08/22 16:52 Exam Narrative: Exam Narrative: She is awake, alert, oriented to self, place, time, situation. Friendly, articulate, cooperative. Mood and affect are congruent. Vision and hearing are grossly normal. Neck is supple. Midline trachea. No JVD or hepatojugular reflux. No lymphadenopathy in the pre or postauricular chains, anterior-posterior cervical chains, submandibular or submental fossa, supra or infraclavicular fossa, or axilla bilaterally. Lungs with some scattered rhonchi otherwise clear. No wheezing or rales. No CVA tenderness. Heart tones with regular rhythm, normal S1-S2, no murmur, gallop, or rub. Abdomen with active bowel sounds, soft, nontender. Extremities without edema. Independent transfer, station, gait. No focal motor neurologic deficits. Cranial nerves 3-12 grossly normal. Const: Vital Signs, click to edit/add: Vital Signs - 24 hr 11/08/22 16:52 11/08/22 18:51 11/08/22 18:57 Temperature 97.8 F Pulse Rate Pulse Rate [Pulse Oximeter] 58 L Respiratory Rate 20 18 Blood Pressure [Ri ght Arm] Blood Pressure [Ri ght Upper Arm] 141/62 H Pulse Oximetry 85 L 92 94 Oxygen Delivery Me thod Room Air Nasal Cannula Oxygen Flow Rate 2 11/08/22 17:44 11/08/22 17:45 11/08/22 18:00 Temperature Pulse Rate 66 68 63 Pulse Rate [Pulse Oximeter] Respiratory Rate Blood Pressure [Ri ght Arm] Blood Pressure [Ri ght Upper Arm] Pulse Oximetry 81 L 84 L 85 L Oxygen Delivery Me thod Oxygen Flow Rate 11/08/22 18:15 11/08/22 18:30 11/08/22 18:35 Temperature Pulse Rate 71 64 65 Pulse Rate [Pulse Oximeter] Respiratory Rate Blood Pressure [Ri ght Arm] Blood Pressure [Ri ght Upper Arm] Pulse Oximetry 90 93 92 Oxygen Delivery Me thod Oxygen Flow Rate 11/08/22 18:45 11/08/22 22:01 Temperature Pulse Rate 63 Pulse Rate [Pulse Oximeter] 69 Respiratory Rate 18 Blood Pressure [Ri ght Arm] 189/80 H Blood [facility]] Pulse Oximetry 93 91 Oxygen Delivery Me thod Nasal Cannula Oxygen Flow Rate 2 Hospitalist - H&P: Result Labs Labs: Short CBC 11/08/22 Range/Units 18:00 WBC 8.49 (4.50-11.00) K/uL Hgb 14.8 (12.0-16.0) gm/dL Hct 45.8 (33.0-51.0) % Plt Count 216 (140-440) K/uL BMP 11/08/22 18:00 Sodium 141 Potassium 2.6 L* Chloride 104 Carbon Dioxide 31 BUN 10 Creatinine 0.9 Glucose 121 H Calcium 11.0 H Cardiac Enzymes 11/08/22 Range/Units 18:00 Troponin I 0.05 H (0.01-0.04) ng/mL ECG Attestation: I personally reviewed and interpreted this ECG as follows: ECG interpretation date: 11/08/22 ECG interpretation time: 21:30 Prior ECG tracings: not available for review Interpretation: QT measurements made by myself ranged from 320-360 milliseconds. Computer reading suggested values of 490-500 milliseconds. Computer reading seems obviously inaccurate. Sinus rhythm. Does have subtle U-waves. Imaging Chest x-ray: Attestation: I have reviewed the pertinent imaging results. Radiologist's impression: Unremarkable imaging of the chest. Assessment and Plan Assessment and plan (1) Acute hypokalemia: Problem comment: Etiology not yet determined. Doubt gastrointestinal. Consider Renal. Also consider respiratory alkalosis 1 at home and not using her O2. Status: Acute (2) Altered mental status: Status: Acute (3) Non compliance with medical treatment: Status: Acute (4) COPD (chronic obstructive pulmonary disease): Status: Acute (5) Hypertension: Status: Acute (6) Respiratory failure, chronic: Status: Acute (7) Cerebrovascular disease: Status: Acute (8) Tobacco dependence: Status: Acute Plan 1. Reviewed impression with patient. Recommended admission to observation. 2. Reviewed impression with Dr. Paiz, physician in [facility] Emergency Department. 3. Patient agreeable l to being admitted for observation. 4. IV and oral potassium supplementation. Recheck potassium in the morning. 5. IV magnesium supplementation. Recheck magnesium level in the morning. 6. MR of the head and neck given recent possible subacute stroke. 7. PT and OT to consult. 8. Will certainly require ongoing outpatient assessment for her multiple conditions specified above including the hypokalemia. 9. She declines any nicotine supplementation on the 1 hand, on the other hand she states she is going to quit smoking altogether. 10. Patient agreeable with above stated plans recommendations.
[2022-11-08] MEDS: POTASSIUM CHLORIDE 10 MEQ CAPSULE ER 40 MEQ PO (22:33)
[2022-11-08] MEDS: MAGNESIUM IV 2 GM/50 ML PIGGYBACK IVPB (22:34)
[2022-11-08] MEDS: POTASSIUM BICARB 25 MEQ EFFERVESCENT TAB 50 MEQ PO (22:34)
--- NOTE | 2022-11-08 22:54 | PC.NURSE ---
Shift [id number]- Patient arrives from ED at approximately 2130. She has lingering forgetfulness/ word finding difficulty. SBA. Sensitive left arm due to injury.
[2022-11-09] VITALS (8 sets, daily range): BP systolic 146–212; BP diastolic 56–101; PULSE 58–76; RESP 18–20; TEMP 36.6–36.9; O2SAT 87–93
--- NOTE | 2022-11-09 05:16 | PC.NURSE ---
[id number] Pt slept well during night, upon initial entry to room, pt upset and refused assessment, later on pt pleasant and cooperative and allowed nurse to assess pt. Pt states that brain fog is better. ambulating independently to BR, tolerated activity fair, SOB with excursion. guards LUE due to fx, denies pain to L arm during night, declined need for ice.
[2022-11-09 06:18] LABS: HCO3 VBG 32 mmol/L (21-28); Ionized Calcium* 1.29 mmol/L (1.11-1.30); Lactate* 0.7 mmol/L (0.5-1.9); PCO2 VBG 51 mmHG (40-50); PO2 VBG 50.9 mmHG (25-47); pH VBG 7.409 (7.32-7.43)
[2022-11-09 06:37] LABS: Chloride* 112 mmol/L (96-114); Potassium* 3.4 mmol/L (3.6-5.1); Sodium* 143 mmol/L (135-149)
[2022-11-09 06:39] LABS: Creatinine* 0.7 mg/dL (0.5-1.5); Est. Creatinine Clearance* 40.21; Estimated Glomerular Filt Rate 90 ml/min
[2022-11-09 06:40] LABS: Blood Urea Nitrogen* 8 mg/dL (7-30); Calcium* 9.3 mg/dL (8.4-10.6); Carbon Dioxide* 32 mmol/L (20-32); Glucose* 97 mg/dL (60-115); Phosphorus* 3.2 mg/dL (2.5-4.5)
[2022-11-09 06:41] LABS: Magnesium* 2.4 mg/dL (1.5-2.6)
[2022-11-09] MEDS: allopurinoL 100 MG TABLET PO (08:33)
[2022-11-09] MEDS: EZETIMIBE 10 MG TABLET PO (08:34)
[2022-11-09] MEDS: FEXOFENADINE 180 MG TABLET PO (08:34)
[2022-11-09] MEDS: carvediloL 25 MG TABLET PO ×2 (08:34→20:45)
[2022-11-09] MEDS: CLOPIDOGREL 75 MG TABLET PO (08:34)
[2022-11-09] MEDS: LOSARTAN POTASSIUM 50 MG TABLET 100 MG PO (08:35)
[2022-11-09] MEDS: ISOSORBIDE MONONITRATE ER 30 MG TAB PO (08:35)
[2022-11-09] MEDS: SERTRALINE 50 MG TABLET PO (08:35)
[2022-11-09] MEDS: SODIUM CHLORIDE 0.9 % (FLUSH) 10 ML SYRINGE 5 ML IVF (08:35)
[2022-11-09] MEDS: OMEPRAZOLE 20 MG CAPSULE DR PO (08:35)
[2022-11-09 08:54] LABS: Troponin I* 0.03 ng/mL (0.01-0.04)
--- NOTE | 2022-11-09 09:39 | NUTR.NU ---
RDN with MD consult for hypokalemia. RDN visited with patient whom agreed to diet education related to hypokalemia. Discussed and reviewed high-potassium food sources. RDN recommended to include these foods more often in patient's diet. Patient reported her appetite has been good, and she has been eating normally at home. Handout provided from [facility] on potassium content of foods. RDN's contact information was provided and patient was encouraged to call/email with questions. RDN will continue to monitor.
--- NOTE | 2022-11-09 11:15 | CRLHL7_ITS ---
For Patients: As a result of the Cures Act, medical imaging exams and procedure reports are released immediately into your electronic medical record. You may view this report before your referring provider. If you have questions, please contact your health care provider. Dictation for this exam included within the brain MRI report from the same date. Dictated by Deshaun Ward MD @ 11/09/2022 1:34:48 PM (Electronically Signed)
--- NOTE | 2022-11-09 11:15 | CRLHL7_ITS ---
For Patients: As a result of the Cures Act, medical imaging exams and procedure reports are released immediately into your electronic medical record. You may view this report before your referring provider. If you have questions, please contact your health care provider. Dictation for this exam included within the brain MRI report from the same date. Dictated by Deshaun Ward MD @ 11/09/2022 1:35:30 PM (Electronically Signed)
--- NOTE | 2022-11-09 11:15 | CRLHL7_ITS ---
For Patients: As a result of the Century Cures Act, medical imaging exams and procedure reports are released immediately into your electronic medical record. You may view this report before your referring provider. If you have questions, please contact your health care provider. INDICATION: Recent stroke. TECHNIQUE: Brain MRI with contrast. The following sequences were obtained: Sagittal T1 weighted sequence. DWI and ADC mapping sequences. Axial FLAIR, GRE T2* and NGUYEN T2 weighted sequences. T1 weighted post-contrast sequences. Magnetic Resonance Angiography of the head and neck with and without contrast. The following sequences were obtained: 3D Time of Flight MRA sequence of the intracranial circulation. 3D Time of Flight and gadolinium bolus MRA sequences the neck with all measurements are based on NASCET criteria. Maximum Intensity Reconstructions are provided. 20 cc of Dotarem gadolinium based contrast agent was used. COMPARISON: Head CT from 11/07/2022. FINDINGS: MRI Head: Multiple small to moderately sized regions of diffusion restriction/FLAIR hyperintensity within brain, including the right middle frontal gyrus/centrum semiovale, the left posterior parietal/occipital region and subjacent white matter as well as the right central/inferior cerebellar hemisphere. These are compatible with recent infarcts. Some of the areas of ischemia demonstrate trace enhancement, compatible with subacute age. No acute or chronic intracranial blood products. Scattered FLAIR hyperintensities within the supratentorial white matter elsewhere, typical for chronic microvascular ischemic changes. No hydrocephalus or extra-axial collections. The pituitary gland, parasellar structures and optic chiasm are normal. The orbital contents are normal. No calvarial or skull base marrow signal abnormality. No obstructive sinus disease. No extracranial soft tissue findings. MRA Head: No proximal large vessel occlusion. The anterior cerebral arteries are patent. The middle cerebral arteries are patent. The posterior cerebral arteries are patent. Mild atherosclerotic irregularity of the bilateral intracranial internal carotid arteries. The intracranial internal carotid arteries are patent. No aneurysm or high flow vascular malformation. MRA Neck: There is a 3 vessel configuration of the aortic arch. The brachiocephalic artery is patent. The proximal subclavian arteries are patent. The common carotid arteries are patent. Mild stenosis of the right internal carotid artery origin. Internal carotid arteries are otherwise patent. Poor visualization of the right cervical vertebral artery origin, which may be due to stenosis or artifact cervical vertebral arteries are otherwise patent no abnormal dilatation of the major cervical arteries. IMPRESSION: MRI Head: 1. Multiple small to moderately sized recent cortical and subcortical infarcts within the supratentorial/infratentorial brain, likely subacute in age given their signal characteristics. Favor embolic etiology. 2. Owor-np-fjvrwsjg chronic microvascular ischemic changes within the supratentorial white matter and brainstem. MRA Head: 1. No proximal large vessel occlusion or flow-limiting stenosis involving the major intracranial arteries. MRA Neck: 1. Mild stenosis of the right ICA origin. 2. Right proximal vertebral artery not well visualized, which may be due to stenosis or artifact. 3. No significant stenosis involving the major cervical arteries elsewhere. Dictated by Deshaun Ward MD @ 11/09/2022 1:34:15 PM (Electronically Signed)
--- NOTE | 2022-11-09 14:47 | P.IMPN_ITS ---
Progress Note: A&P Assessment and plan (1) Acute hypokalemia: Problem details: - source possibly renal vs respiratory alkalosis (not using home O2) - improved after supplementation, continue to follow Status: Acute (2) Embolic stroke: Problem details: - noted on MRI 11/09 (formal radiology read below) - reviewed with Dr. Quintana, Neurologist at [facility]: given findings, d/c Plavix and treat with ASA monotherapy, f/u with Neurology as an outpatient - continue restarted home medications for lipid and BP management - TTE ordered MRI Head: 1. Multiple small to moderately sized recent cortical and subcortical infarcts within the supratentorial/infratentorial brain, likely subacute in age given their signal characteristics. Favor embolic etiology. 2. Mtnj-et-xfasceep chronic microvascular ischemic changes within the supratentorial white matter and brainstem. MRA Head: 1. No proximal large vessel occlusion or flow-limiting stenosis involving the major intracranial arteries. MRA Neck: 1. Mild stenosis of the right ICA origin. 2. Right proximal vertebral artery not well visualized, which may be due to stenosis or artifact. 3. No significant stenosis involving the major cervical arteries elsewhere. Dictated by Deshaun Ward MD @ 11/09/2022 1:34:15 PM Status: Acute (3) Non compliance with medical treatment: Problem details: - stopped home medications approximately 2 weeks ago Status: Acute (4) COPD (chronic obstructive pulmonary disease): Problem details: - Appreciate assistance from RT - recommend compliance with home O2 Status: Acute (5) Hypertension: Problem details: - current BPs above goal - continue restarted home medications (carvedilol, isosorbide, losartan) - add 5 mg of amlodipine (11/09) given suboptimal control and subacute CVA diagnosis Status: Acute (6) Tobacco dependence: Problem details: - replacement prn Status: Acute Plan - TTE today - medication management as noted - likely discharge home tomorrow morning with close PCP follow-up Subjective Date Seen: 11/09/22 Interval history: No acute events overnight. Patient tolerating restarted home medications and supplemental oxygen. MRI today reveals concerns of embolic CVA. Patient has no lateralizing neurologic deficits, notes that her brain fog from admission has essentially resolved; she would like to be discharged home. Exam Narrative: Exam Narrative: GEN: Alert and oriented, sitting comfortably in bed and answering questions appropriately HEENT: EOMIs bilaterally, no scleral icterus CV: RRR, No concerning murmurs, rubs, or gallops R: Decreased lung sounds throughout without wheezing or rales Ext: wwp, no concerning edema Skin: No concerning skin lesions or rashes on exposed skin Neuro: No focal deficits, no resting tremor Psych: Appropriate Const: Vital Signs, click to edit/add: Vital Signs - 24 hr 11/08/22 16:52 11/08/22 18:51 11/08/22 18:57 Temperature 97.8 F Pulse Rate Pulse Rate [Pulse Oximeter] 58 L Respiratory Rate 20 18 Blood Pressure [Ri ght Arm] Blood Pressure [Ri ght Upper Arm] 141/62 H Pulse Oximetry 85 L 92 94 Oxygen Delivery Me thod Room Air Nasal Cannula Oxygen Flow Rate 2 11/08/22 17:44 11/08/22 17:45 11/08/22 18:00 Temperature Pulse Rate 66 68 63 Pulse Rate [Pulse Oximeter] Respiratory Rate Blood Pressure [Ri ght Arm] Blood Pressure [Ri ght Upper Arm] Pulse Oximetry 81 L 84 L 85 L Oxygen Delivery Me thod Oxygen Flow Rate 11/08/22 18:15 11/08/22 18:30 11/08/22 18:35 Temperature Pulse Rate 71 64 65 Pulse Rate [Pulse Oximeter] Respiratory Rate Blood Pressure [Ri ght Arm] Blood Pressure [Ri ght Upper Arm] Pulse Oximetry 90 93 92 Oxygen Delivery Me thod Oxygen Flow Rate 11/08/22 18:45 11/08/22 22:01 11/08/22 22:01 Temperature Pulse Rate 63 Pulse Rate [Pulse Oximeter] 69 Respiratory Rate 18 Blood Pressure [Ri ght Arm] 189/80 H Blood Pressure [Ri ght Upper Arm] Pulse Oximetry 93 91 93 Oxygen Delivery Me thod Nasal Cannula Nasal Cannula Oxygen Flow Rate 2 2 11/08/22 23:00 11/08/22 23:00 11/08/22 23:00 Temperature 97.6 F Pulse Rate Pulse Rate [Pulse Oximeter] 70 70 Respiratory Rate 18 18 Blood Pressure [Ri ght Arm] 165/77 H Blood Pressure [Ri ght Upper Arm] Pulse Oximetry 93 93 Oxygen Delivery Me thod Nasal Cannula Nasal Cannula Oxygen Flow Rate 2 2 11/09/22 00:17 11/09/22 02:15 11/09/22 07:54 Temperature Pulse Rate 59 L 58 L Pulse Rate [Pulse Oximeter] 72 Respiratory Rate 20 Blood Pressure [Ri ght Arm] 166/56 H Blood Pressure [Ri ght Upper Arm] Pulse Oximetry 88 Oxygen Delivery Me thod Nasal Cannula Oxygen Flow Rate 2 11/09/22 08:36 11/09/22 08:36 11/09/22 08:36 Temperature 97.9 F Pulse Rate Pulse Rate [Pulse Oximeter] 67 67 Respiratory Rate 18 18 18 Blood Pressure [Ri ght Arm] 212/83 H Blood Pressure [Ri ght Upper Arm] Pulse Oximetry 93 93 Oxygen Delivery Me thod Nasal Cannula Nasal Cannula Oxygen Flow Rate 2 2 11/09/22 11:08 Temperature 97.8 F Pulse Rate Pulse Rate [Pulse Oximeter] 61 Respiratory Rate 20 Blood Pressure [Ri ght Arm] 146/101 H Blood Pressure [Ri ght Upper Arm] Pulse Oximetry 92 Oxygen Delivery Me thod Nasal Cannula Oxygen Flow Rate 2 Labs Labs: Laboratory Results - last 24 hr 11/08/22 11/08/22 11/08/22 17:05 18:00 18:00 WBC 8.49 RBC 5.33 H Hgb 14.8 Hct 45.8 MCV 86 MCH 28 MCHC 32 RDW Coeff of Bart 14.2 Plt Count 216 Neut % (Auto) 59.9 Lymph % (Auto) 29.7 [place] % (Auto) 7.7 Eos % (Auto) 2.4 Baso % (Auto) 0.1 Neut # (Auto) 5.09 Lymph # (Auto) 2.52 [place] # (Auto) 0.70 Eos # (Auto) 0.20 Baso # (Auto) 0.01 D-Dimer Quant (PE/DVT) 0.83 H VBG pH VBG pCO2 VBG pO2 VBG HCO3 Sodium Potassium Chloride Carbon Dioxide BUN Creatinine Estimated Creat Clear Estimated GFR Glucose Lactate Calcium Ionized Calcium Ziyad Phosphorus Magnesium Troponin I C-Reactive Protein NT-Pro-B Natriuret Pep TSH SARS-CoV-2 (PCR) Negative SARS-CoV-2 Influenza Type A (PCR) Negative PCR FLU A Influenza Type B (PCR) Negative PCR FLU B RSV (PCR) Negative PCR RSV 11/08/22 11/08/22 11/08/22 18:00 18:00 18:00 WBC RBC Hgb Hct MCV MCH MCHC RDW Coeff of Bart Plt Count Neut % (Auto) Lymph % (Auto) [place] % (Auto) Eos % (Auto) Baso % (Auto) Neut # (Auto) Lymph # (Auto) [place] # (Auto) Eos # (Auto) Baso # (Auto) D-Dimer Quant (PE/DVT) VBG pH 7.401 VBG pCO2 55 H VBG pO2 29.0 VBG HCO3 34 H Sodium 141 Potassium 2.6 L* Chloride 104 Carbon Dioxide 31 BUN 10 Creatinine 0.9 Estimated Creat Clear 38.44 Estimated GFR 67 Glucose 121 H Lactate Calcium 11.0 H Ionized Calcium Ziyad Phosphorus Magnesium 1.9 Troponin I 0.05 H C-Reactive Protein < 0.5 L NT-Pro-B Natriuret Pep 652 TSH 1.220 SARS-CoV-2 (PCR) Influenza Type A (PCR) Influenza Type B (PCR) RSV (PCR) 11/09/22 11/09/22 05:36 05:36 WBC RBC Hgb Hct MCV MCH MCHC RDW Coeff of Bart Plt Count Neut % (Auto) Lymph % (Auto) [place] % (Auto) Eos % (Auto) Baso % (Auto) Neut # (Auto) Lymph # (Auto) [place] # (Auto) Eos # (Auto) Baso # (Auto) D-Dimer Quant (PE/DVT) VBG pH 7.409 VBG pCO2 51 H VBG pO2 50.9 H VBG HCO3 32 H Sodium 143 Potassium 3.4 L Chloride 112 Carbon Dioxide 32 BUN 8 Creatinine 0.7 Estimated Creat Clear 40.21 Estimated GFR 90 Glucose 97 Lactate 0.7 Calcium 9.3 Ionized Calcium Ziyad 1.29 Phosphorus 3.2 Magnesium 2.4 Troponin I 0.03 C-Reactive Protein NT-Pro-B Natriuret Pep TSH SARS-CoV-2 (PCR) Influenza Type A (PCR) Influenza Type B (PCR) RSV (PCR)
[2022-11-09] MEDS: NIFEdipine 30 MG TAB.ER.24 90 MG PO (20:45)
[2022-11-09] MEDS: ATORVASTATIN CALCIUM 40 MG TABLET 80 MG PO (20:45)
[2022-11-09] MEDS: OXYCODONE 5 MG TABLET PO (20:55)
[2022-11-10 03:00] VITALS: RESP 16
--- NOTE | 2022-11-10 05:24 | PC.NURSE ---
[id number] Pt pleasant, able to sleep all night, requested not to be woken up for 0300 vitals, frequent checks completed. O2 sats 86-88% on RA at rest, declines putting on oxygen, educated patient on oxygen use particularly with activity, pt continued to decline using oxygen. Pt denies SOB or difficultly breathing.
[2022-11-10 06:53] LABS: Basophils Absolute Auto 0.01 K/uL (0.00-0.30); Basophils Percent Auto 0.1 % (0.0-3.0); Eosinophils Absolute Auto 0.33 K/uL (0.00-0.50); Eosinophils Percent Auto 4.1 % (0.0-7.0); Hematocrit 39.3 % (33.0-51.0); Hemoglobin* 12.8 gm/dL (12.0-16.0); Immature Granulocytes Abs Auto 0.02 K/uL (0.00-0.30); Immature Granulocytes Pct Auto 0.3 %; Lymphocytes Absolute Auto 2.61 K/uL (0.90-2.90); Lymphocytes Percent Auto 32.6 % (20-44); Mean Corpuscular HGB Conc 33 gm/dL (32-36); Mean Corpuscular Hemoglobin 28 pg (26-34); Mean Corpuscular Volume 87 fL (80-100); Neutrophils Absolute Auto 4.39 K/uL (1.7-7.0); Neutrophils Percent Auto 54.9 % (42.0-72.0); Platelet Count* 175 K/uL (140-440); RDW Coefficient of Variation % 14.1 % (11.5-15.5); Red Blood Count 4.54 m/uL (4.00-5.20)
[2022-11-10 07:00] VITALS: BP 162/72; PULSE 72; RESP 16; RESP 18; TEMP 36.6; O2SAT 85; O2SAT 86
[2022-11-10 07:18] LABS: Chloride* 111 mmol/L (96-114); Sodium* 141 mmol/L (135-149)
[2022-11-10 07:21] LABS: Blood Urea Nitrogen* 9 mg/dL (7-30); Carbon Dioxide* 31 mmol/L (20-32); Creatinine* 0.8 mg/dL (0.5-1.5); Est. Creatinine Clearance* 40.21; Estimated Glomerular Filt Rate 77 ml/min
[2022-11-10 07:22] LABS: Calcium* 8.6 mg/dL (8.4-10.6); Glucose* 106 mg/dL (60-115); Magnesium* 1.9 mg/dL (1.5-2.6)
[2022-11-10 07:23] LABS: Slide Review Reflex Yes
[2022-11-10 07:24] LABS: Slide Review Acceptable Review (Acceptable)
[2022-11-10 07:27] LABS: Potassium* 2.8 mmol/L (3.6-5.1)
[2022-11-10] MEDS: POTASSIUM CHLORIDE 10 MEQ CAPSULE ER 40 MEQ PO (08:12)
[2022-11-10] MEDS: OMEPRAZOLE 20 MG CAPSULE DR PO (09:42)
[2022-11-10] MEDS: carvediloL 25 MG TABLET PO (09:42)
[2022-11-10] MEDS: POTASSIUM BICARB 25 MEQ EFFERVESCENT TAB PO ×3 (09:42→12:24)
[2022-11-10] MEDS: ISOSORBIDE MONONITRATE ER 30 MG TAB PO (09:43)
[2022-11-10] MEDS: FEXOFENADINE 180 MG TABLET PO (09:43)
[2022-11-10] MEDS: allopurinoL 100 MG TABLET PO (09:43)
[2022-11-10] MEDS: ASPIRIN EC 325 MG TABLET PO (09:43)
[2022-11-10] MEDS: LOSARTAN POTASSIUM 50 MG TABLET 100 MG PO (09:57)
[2022-11-10] MEDS: OXYCODONE 5 MG TABLET PO (09:58)
[2022-11-10] MEDS: EZETIMIBE 10 MG TABLET PO (10:09)
[2022-11-10 11:00] VITALS: BP 144/78; PULSE 64; RESP 18; TEMP 36.5; O2SAT 87
[2022-11-10 13:21] LABS: Potassium* 4.2 mmol/L (3.6-5.1)
--- NOTE | 2022-11-10 14:12 | P.DS_ITS ---
DS: Providers Provider Date Seen: 11/10/22 Date of admission: 11/08/22 21:30 Primary care physician: Veronica Florez DO Admitting Clinician: Jaylen Rodriguez MD Consults: Nutrition, PT, OT, Neurology Attending Physician on discharge: Jaylen Rodriguez MD Date of Discharge: 11/10/22 DS: Diagnosis Discharge Diagnosis (1) Embolic stroke: Status: Acute Problem details: - noted on MRI 11/09 (formal radiology read below) - reviewed with Dr. Quintana, Neurologist at [facility]: given findings, d/c Plavix and treat with ASA monotherapy, f/u with Neurology as an outpatient - OT recommends outpatient follow-up for further cognitive testing, patient pre contemplative regarding f/u - continue restarted home medications for lipid and BP management - TTE performed 11/09: Final Impressions: 1. Technically limited exam. 2. Normal LV size, mildly increased wall thickness, estimated EF of 55 - 60%. 3. The aortic valve is sclerotic, no stenosis and mild regurgitation. 4. The mitral valve is sclerotic, mild stenosis (MG 3 mmHg @ HR 70 bpm), trace regurgitation. 5. No shunt by Color Doppler. MRI Head: 1. Multiple small to moderately sized recent cortical and subcortical infarcts within the supratentorial/infratentorial brain, likely subacute in age given their signal characteristics. Favor embolic etiology. 2. Exur-ld-abxgznud chronic microvascular ischemic changes within the supratentorial white matter and brainstem. MRA Head: 1. No proximal large vessel occlusion or flow-limiting stenosis involving the major intracranial arteries. MRA Neck: 1. Mild stenosis of the right ICA origin. 2. Right proximal vertebral artery not well visualized, which may be due to stenosis or artifact. 3. No significant stenosis involving the major cervical arteries elsewhere. Dictated by Deshaun Ward MD @ 11/09/2022 1:34:15 PM (2) Non compliance with medical treatment: Status: Acute Problem details: - stopped home medications approximately 2 weeks ago (interestingly, had a fall at home and laid on the floor overnight, unable to get up. During the fall, she dropped her medications; when this happened she decided to stop them all out of frustration. This may be when her initial cerebral insult occurred) (3) Acute hypokalemia: Status: Acute Problem details: - source possibly renal vs respiratory alkalosis (not using home O2) - improved after supplementation, continue to follow (4) Hypertension: Status: Acute Problem details: - continued restarted home medications (carvedilol, isosorbide, losartan, nifedipine) during stay (5) COPD (chronic obstructive pulmonary disease): Status: Acute Problem details: - Appreciate assistance from RT - recommend compliance with home O2 DS: Summary Hospital Course Hospital Course: 77-year-old female, admitted to the hospital after being seen in the clinic for confusion and word-finding difficulties, in the setting of hypokalemia. Patient had an abnormal head CT prior to admission, MRI obtained and findings noted above. Reviewed with Neurology by phone, recommend aspirin daily with o utpatient neurology follow-up. Minimal deficits noted, although patient did continue to have intermittent word- finding difficulties. During stay, Ariadne was seen by therapies, + recommendation for outpatient OT to perform further cognitive workup, patient pre contemplative. No physical therapy recommendations upon discharge. Patient also noted to have significant hypokalemia, responded well to supplementation. She will continue supplementation upon discharge with close PCP follow-up and a BMP early next week. We discussed the importance of medication compliance, patient verbalized understanding. She felt back to baseline and is requesting discharge home on 11/10/2022. Status at Discharge Functional status at discharge: independent ambulation Overall status at discharge: patient is progressing back to baseline Time Spent with Patient Time attestation: Total time spent providing and/or coordinating discharge services: Time spent: Greater than 30 minutes Specific discharge activities: Medication reconciliation, patient Education, care coordination Exam Narrative: Exam Narrative: GEN: Alert and oriented, answering questions appropriately HEENT: EOMIs bilaterally, no scleral icterus CV: RRR, No concerning murmurs, rubs, or gallops R: Decreased air movement bibasilarly with soft wheezing, no rales or rhonchi Ext: wwp, no concerning edema Skin: No concerning skin lesions or rashes on exposed skin Neuro: No focal deficits or resting tremor, no concerns with gait. I ntermittent word-finding difficulties Psych: Appropriate Const: Vital Signs, click to edit/add: Vital Signs - 24 hr 11/09/22 15:00 11/09/22 15:00 11/09/22 15:00 Temperature 97.8 F Pulse Rate [Pulse Oximeter] 67 Respiratory Rate 20 20 20 Blood Pressure [Ri ght Arm] 147/67 H Pulse Oximetry 87 L 87 L Oxygen Delivery Me thod Nasal Cannula Room Air Oxygen Flow Rate 2 11/09/22 19:00 11/09/22 23:00 11/09/22 23:00 Temperature 97.9 F Pulse Rate [Pulse Oximeter] 76 76 Respiratory Rate 20 20 Blood Pressure [Ri ght Arm] 205/86 H Pulse Oximetry 88 88 Oxygen Delivery Me thod Room Air Room Air Oxygen Flow Rate 11/09/22 23:00 11/10/22 03:00 11/10/22 07:00 Temperature 98.4 F Pulse Rate [Pulse Oximeter] 69 72 Respiratory Rate 20 16 16 Blood Pressure [Ri ght Arm] 184/72 H Pulse Oximetry 88 Oxygen Delivery Me thod Room Air Oxygen Flow Rate 0 11/10/22 07:00 11/10/22 07:00 11/10/22 11:00 Temperature 97.8 F 97.7 F Pulse Rate [Pulse Oximeter] 72 64 Respiratory Rate 18 18 Blood Pressure [Ri ght Arm] 162/72 H 144/78 H Pulse Oximetry 85 L 86 L 87 L Oxygen Delivery Me thod Room Air Room Air Room Air Oxygen Flow Rate DS: Data Data Completed and Pending Completed studies during hospitalization: Procedures Introduction of Other Gas into Respiratory Tract, Via Natural or Artificial Opening (09/26/22) Labs on day of discharge: Labs from last 24 hours 11/10/22 11/10/22 11/10/22 12:55 06:15 06:15 WBC 8.00 RBC 4.54 Hgb 12.8 Hct 39.3 MCV 87 MCH 28 MCHC 33 RDW Coeff of Bart 14.1 Plt Count 175 Neut % (Auto) 54.9 Lymph % (Auto) 32.6 Graves % (Auto) 8.0 Eos % (Auto) 4.1 Baso % (Auto) 0.1 Neut # (Auto) 4.39 Lymph # (Auto) 2.61 Graves # (Auto) 0.60 Eos # (Auto) 0.33 Baso # (Auto) 0.01 Diff Slide Review Acceptable Review Sodium 141 Potassium 4.2 2.8 L* Chloride 111 Carbon Dioxide 31 BUN 9 Creatinine 0.8 Estimated Creat Clear 40.21 Estimated GFR 77 Glucose 106 Calcium 8.6 Magnesium 1.9 Discharge Plan Discharge Disposition: Home, Self-Care Date of Admission: 11/08/22 21:30 Attending Provider on Discharge: Marialuisa Kessler Primary Care Provider: Veronica Florez Condition: Stable Anticipated Discharge Date/Time: 11/10/22 15:00 Discharge Medications: New ipratropium-albuterol 0.5 mg-3 mg(2.5 mg base)/3 mL Solution For Nebulization 3 ml inhalation QID Qty: 90 0RF sertraline 50 mg Tablet 50 mg PO DAILY Qty: 30 0RF aspirin 325 mg Tablet,Delayed Release (Dr/Ec) 325 mg PO DAILY Qty: 30 0RF potassium chloride 20 mEq tablet extended release 20 meq PO BID Qty: 60 2RF Continued atorvastatin 80 mg tablet 80 mg PO HS carvedilol 25 mg tablet 25 mg PO BID nystatin 100,000 unit/mL suspension 5 ml mucous membrane QID PRN Label Comments: Swish and swallow 5 mL by mouth 4 times daily Rx Instructions: FOR THRUSH FROM SYMBICORT nifedipine 90 mg tablet extended release 90 mg PO HS isosorbide mononitrate 30 mg tablet extended release 24 hr 30 mg PO DAILY fexofenadine 180 mg tablet 180 mg PO DAILY allopurinol 100 mg tablet 100 mg PO DAILY omeprazole 20 mg capsule,delayed release(DR/EC) 20 mg PO DAILY losartan 100 mg tablet 100 mg PO DAILY ezetimibe 10 mg tablet 10 mg PO DAILY budesonide-formoterol [Symbicort] 80-4.5 mcg/actuation HFA aerosol inhaler 2 puff INHALATION Q12H Incruse Ellipta 62.5 mcg/actuation blister with device 1 inh INHALATION DAILY diclofenac sodium [Voltaren Arthritis Pain] 1 % gel 2 g topical QID PRN Rx Instructions: TO PAINFUL JOINTS NEEDED Centrum Silver Women 8 mg iron-400 mcg-300 mcg tablet 1 tab PO DAILY (DME) Home Oxygen Misc See Rx Instructions .Route Qty: 1 0RF Rx Instructions: O2 4 LPM via NC with activity ketoconazole 2 % cream 1 applic TOPICAL BID PRN Label Comments: apply to feet and between toes 1-2 times a day for 2-4 weeks cholecalciferol (vitamin D3) 25 mcg (1,000 unit) capsule 25 mcg PO DAILY Discontinued potassium chloride 20 mEq packet 40 meq PO DAILY clopidogrel 75 mg tablet 75 mg PO DAILY Discharge Orders: Discharge Order (Routine); Ordered 11/10/22 Ordered By: Marialuisa Kessler Patient Education: Potassium Chloride (By mouth), Aspirin (By mouth), Sertraline (By mouth), Ipratropium/Albuterol (By breathing), Potassium Content of Foods List (DC), Hypokalemia (DC) Additional Instructions: Your MRI indicates you have had small multiple strokes. You will need to see Dr. Merritt or one of her partners next week, then see Neurology as an outpatient. Medications that are VERY IMPORTANT to take for this: 1. Aspirin, 325 mg daily 2. Your blood pressure medications: Isosorbide, losartan, nifedipine, carvedilol 3. Your atorvastatin Your potassium is now normal, but has been low every morning. It is VERY IMPORTANT that you are on potassium supplementation; I recommend 20meq 2-3 times/day until recheck early next week, and make sure you are eating normally. I sent the potassium to [facility]. Discharge Diet: Regular Follow Up Appointments: Veronica Florez DO [Primary Care Provider] - 11/13/22 1:40 pm ( Sunday of next week with BMP to check potassium) Forms: [employer] Info Instructions
[2022-11-10 14:22] VITALS: PULSE 58; RESP 18; TEMP 36.5
--- NOTE | 2022-11-10 15:34 | PC.NURSE ---
Pt alert and oriented, pleasant. Vitals stable w/ HTN but improved throughout shift after scheduled BP meds. Pt refused to wear O2, O2 sat mid 80s%, 85-87%. Pt states she doesn't need O2 and also refused breathing treatments, pt appears comfortable at rest, denies SOB, tolerates movement. Ind in room to chair, bed and bathroom. Had chronic pain to L shoulder from prior fall, PRN Oxycodone effective and pt denied pain at recheck. Pt denies concerns, K+ replaced PO this shift as pt already had IV removed prior and declined replacement so MD ok changing K+ to oral solution and K+ recheck 4.2. order for pt to d/c, discharge teaching completed, & pts friend transported pt home after WC ride to ED entrance.
== END 2022-11-10 14:55 | disposition home or self-care (01) ==
LOC: ED 21:20 → MEDSURG 21:31
PROVIDERS: Family Medicine; Admitting Provider Internal Medicine; Emergency Provider Family Medicine; PCP Family Medicine; Visit Provider Internal Medicine
DX: E87.6 Hypokalemia (principal); I63.9 Cerebral infarction, unspecified; I67.9 Cerebrovascular disease, unspecified; Z91.199 Patient's noncompliance with other medical treatment and regimen due to unspecified reason; J96.10 Chronic respiratory failure, unspecified whether with hypoxia or hypercapnia; G93.89 Other specified disorders of brain; J44.9 Chronic obstructive pulmonary disease, unspecified; R41.82 Altered mental status, unspecified; E78.5 Hyperlipidemia, unspecified; F17.200 Nicotine dependence, unspecified, uncomplicated; I05.0 Rheumatic mitral stenosis; R63.4 Abnormal weight loss; M81.0 Age-related osteoporosis without current pathological fracture; I12.9 Hypertensive chronic kidney disease with stage 1 through stage 4 chronic kidney disease, or unspecified chronic kidney disease; N18.30 Chronic kidney disease, stage 3 unspecified; Z90.49 Acquired absence of other specified parts of digestive tract; R60.0 Localized edema; R53.1 Weakness; R53.83 Other fatigue
CPT/HCPCS: 36415; 70544; 70549; 70553; 71045; 80048; 82330; 82803; 83605; 83735; 83880; 84100; 84132; 84443; 84484; 85025; 85379; 86140; 87502; 87634; 87635; 93005; 93306; 94761; 96365; 96366; 96367; 97116; 97161; 97165; 97535; 99284; 99285; G0378; A9270; A9575; J3475; J3480; J7030

== ENCOUNTER 2023-02-15 16:30 | Outpatient (RCR) | payer MEDICARE, SELFPAY ==
--- NOTE | 2022-10-27 13:09 | PT.OPEX ---
[facility] [place] Outpatient Eval PT [facility] Outpatient Eval Start: 10/27/22 12:12 Freq: Status: Active Protocol: Document 10/27/22 12:37 OMER (Rec: 10/27/22 13:08 OMER [id number]) E-signed By Jasmin Hurtado PT Physical Therapy Outpatient Evaluation Insurance Information Insurance Name Medicare B,inDinero, Other; See Comments Insurance Information/Comments UNITED / MCARE/ A[employer] Medical Diagnosis LEFT PROXIMAL HUMERAL FX Treating Diagnosis LEFT SHOULDER PAIN LEFT SHOULDER WEAKNESS LEFT SHOULDER DECREASED ROM Referring MD MYKEL VALERO Subjective Subjective PATIENT ARRIVES TODAY RUNNING LATE AND SOB WITH AMB INTO CLINIC HOLDING HER PORTABLE OXGEN BEING DRIVEN HER BY HER NEIGHBOR. SHE STATES, IT'S JUST HARD TO GET AROUND AND THERE'S JUST SO MUCH BEEN GOING ON WITH ME LATELY. SHE C/O LEFT SHOULDER PAIN AND FATIGUE. Pain Comments 3-4/10 AT REST AND 7/10 WITH MVMT Date of Last Physician Visit 10/12/22 Current Work Status Retired Preferred Name MONY Precautions Therapy Limitations/Systems Review Not Limited Objective Other/Pertinent Objective CERVICAL ROM : WFL'S SHOULDER AROM : Flexion: L 10 Abduction: L15 Internal Rotation: L UNABLE External Rotation: L UNABLE SHOULDER MMT: Shoulder shrug: L 4/5 Shoulder flexion: L 2/5 Shoulder abduction: L 2/5 Shoulder External Rotation: L 2/5 Shoulder Internal Rotation: L 2/5 Elbow flexion: L 3+/5 Elbow extension R /5 L /5 SPECIAL TEST : N/A D/T PROXIMAL HUMERAL FX JOINT MOBILITY/PALPATION : PALPABLE TENDERNESS ABOUT THE PROXIMAL SHOULDER EXTENDING TO LATERAL ARM TO ELBOW OTHER: MODERATE BRUISING ABOUT THE MID UPPER ARM EXTENDING TO POSTERIOR FOREARM TX: PENDULUM FWD/BCKWD, SIDE/SIDE, CIRCLES SHOULDER CIRCLES X 10 SHOULDER RETRACTION X 10 HOLD 3 SEC SHOULDER SHRUGS X 10 HOLD 3 SEC (TOP/BOTTOM) ELBOW EXTENSION HOLD 3 SEC AND FLEX HOLD 3 SEC X 10 Assessment Assessment/Impression PATIENT IS A 77 YO PATIENT OF MYKEL VALERO REFERRED TO PHYSICAL THERAPY D/T PROXIMAL HUMERAL FX SUSTAINED AFTER FALLING ON ICE AT HER MAILBOX. SHE HAS HAD TO EMERGENT VISITS IN THE LAST 2 MO WITH THE FIRST ON 09/21/22 D/T FALL AND FRACTURE AND THE NEXT ON D/T COPD EXACERBATION, ARF, AND PNA. 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 SHE RETURNED HOME WITH NEWLY PRESCRIBED OXYGEN THAT SHE HAS SET ON 4L FOR BOTH PORTABLE AND HOME CONCENTRATOR. WE DISCUSSED F/U NEEDED FOR BOTH THE SHOULDER AND HER PULMONARY DYSFUNCTION WITH SPECIFIC CLARIFICATION NEEDED FOR OXYGEN LEVELS FOR HOME AND ACTIVITY. PATIENT VERBALIZED UNDERSTANDING. SHE LIVES IN A SPLIT LEVEL HOME WTIH 2 STEPS TO ENTER WITH BILATERAL RAILING WITH HER AGED BOYFRIEND WHO ALSO HAS FUNCTIONAL CHALLENGES. TODAY, SHE IS IN HER SLING WITH POOR POSTIONING C/O 3//10 PAIN AT REST AND 7/10 WITH AROM ATTEMPTS. SHE DEMONSTRATES MOD SOB WITH <40FT OF AMB TO THE ROOM THAT CONTINUES TO SOME DEGREE THROGHOUT THE VISIT. I DO NOT HAVE A PULSE OXIMETER BUT THE PATIENT REPORTS FREQ CHECKS AT HOME USING HER OWN. SHE NEEDS MIN A MOVING FROM SIT TO SUPINE D/T HER LEFT ARM PAIN AND DIFFICULTY MANEUVERING WHILE KEEPING HER LUE CLOSE TO HER BODY. HER SHOULDR IS STIFF WITH CAPSULAR ENDFEEL THAT INCREASE HER PAIN SENSATION. SHE MEASURED PROM (SUPINE)108 FLEX, ABD 88, ER 10, IR 8; AROM STDG S'FLEX 10 DEGREES, S'ABD 8, IR/ER UNABLE D/T PAIN; WE DISCUSSED THE NEED FOR GENTLE AAROM AND SCAPULAR STABILIZATION TO BEGIN HER PHYSICAL THERAPY WITH DEMONSTRATION AND PERFORMANCE OF EA (SEE [place]). I' M UNCLEAR WHEN SHE WILL RETURN FOR HER 2ND VISIT AND AM HESITENT TO SEND HER HOME WITH TOO MUCH TO WORK ON GIVEN NOT ONLY HER CURRENT HEALTH STATUS AND THE VISITS/ INTERVENTION ASSOCIATED WITH THAT BUT ALSO HER CURRENT POOR MOBILITY AND PAIN LEVELS. NEXT VISIT I WILL CONTINUE WITH TODAY'S INTERVENTION AND ADD TABLE SLIDES TO TOLERANCE. PATIENT IS APPROPRIATE FOR SKILLED PHYSICAL THERAPY INTERVENTION TO ADDRESS THE AFOREMENTED DEFICITS AND ASSIST IN HER RETURN TO INDEPENDENT ADL'S, AMB AND TOLERANCE FOR LIMITED COMMUNITY DISTANCE. PATIENT VERBALIZED UNDERSTANDING TO ALL SKILLED INSTRUCTION AND AGREEABLE TO POC AND FREQ; NEXT VISIT, I WILL ALSO PERFORM TUG, STS, AND TINETTI TO OBJECTIVELY ASSESS FALL RISK. UNABLE TO PERFORM TODAY D/T TIME RESTRAINTS Primary Functional Limitations DECREASED ROM DECREASED STRENGTH DIFFICULTY AMB UNSTEADY GAIT POOR ENDURANCE ASSISTANCE NEEDED FOR ADL'S, IADL'S AND UNABLE TO REACH OR USE LEFT ARM Plan of Care Rehabilitation Potential Fair Rehabilitation Potential Comments PATIENT HAS A MYRIAD OF HEALTH CONCERNS THAT MAY SLOW HER PROGRESS AND LIMIT HER PARTICIPATION. Physical Therapy Goals STG 1. PATIENT WILL BE INDEPENDENT WITH HER HEP IN 4-6 WEEKS 2. PATIENT WILL IMPROVE FROM 108-130 DEGREES PROM FLEX IN 4 -6 WEEKS 3. PATIENT WILL BE INDEPENDENT WITH HER ADL'S IN 4-6 WEEKS LT. PATIENT WILL DEMONSTRATE FULL PROM OF LEFT SHOULDER IN 8-12 WEEKS 2. PATIENT WILL BE ABLE TO PERFORM IADL'S, REACH OVERHEAD , AND DRIVE WITH PAIN RATING < 4/10 IN 8-12 WEEKS Coordination/Communication With Referral Source Treatment Plan/Direct Interventions Gait Training,Heat,Ice/Cold/ Vasopneumatic,Joint Mobilization,Manual Therapy, Neuromuscular Re-ed, Therapeutic Activities, Therapeutic Exercises Frequency/Duration 2W6 Patient Will Be Discharged From Therapy Completion of LTG(s),Skills Plateau,Independent w/HEP Discharge Plan Comments DISCHARGE TO SELF WHEN GOALS MET OR MAX POTENTIAL ACHIEVED Evaluation Billing Untimed Code Treatment Minutes 20 PT Eval No Charge No Complexity Moderate Certification Information Initial Certification Date 10/27/22 Ending Certification Date 01/19/23 Provider Signature Shows Agreement With POC & Medical Necessity Physician Signature & Date Requested Please Sign/Date Here Physician Comment/Change : Physician NPI Number #
--- NOTE | 2023-02-16 14:14 | PT.OPDNX ---
PT [facility] DISCHARGE SUMMARY/RECERTIFICATION PT [facility] Outpatient Daily Note Start: 10/27/22 12:12 Freq: Status: Active Protocol: Document 02/15/23 16:46 OMER (Rec: 02/15/23 17:37 OMER [id number]) E-signed By Jasmin Hurtado, PT PT OP Daily Progress Note Visit Information Note Type Discharge Note Visit Number 10 Insurance Information Insurance Name Medicare B,[employer], Other; See Comments Insurance Information/Comments [facility] Medical Diagnosis LEFT PROXIMAL HUMERAL FX Treating Diagnosis LEFT SHOULDER PAIN LEFT SHOULDER WEAKNESS LEFT SHOULDER DECREASED ROM Referring MD MYKEL VALERO Subjective Subjective PATIENT STATES, I SLEPT WRONG AND MY NECK IS SORE BUT OTHERWISE IT'S (SHOULDER) GETTIN BETTER EVERY DAY.) Pain Comments -12/18 Preferred Name MONY Objective Other/Pertinent Objective CERVICAL ROM : WFL'S SHOULDER AROM : Flexion: L 10 ; 01/11/23 108; 130 Abduction: L 15; 01/11/23 88; 02/15/23 92 Internal Rotation: L LATERAL HIP; 02/15/23 LATERAL HIP External Rotation: L 26; 68 SHOULDER MMT: Shoulder shrug: L 4/5 ; 5/5; Shoulder flexion: L 2/5 ; 01/11 3+; 02/15/23 4/5 Shoulder abduction: L 2/5 ; 01/11/23 3/5; 02/15/23 4/5 Shoulder External Rotation: L 2/5 ; 01/11/23 3+; 02/15/23 4+ Shoulder Internal Rotation: L 2/5 ; 01/11/23 4-; 02/15/23 4+/5 SPECIAL TEST : N/A D/T PROXIMAL HUMERAL FX JOINT MOBILITY/PALPATION : PALPABLE TENDERNESS ABOUT THE PROXIMAL SHOULDER EXTENDING TO LATERAL ARM TO ELBOW OTHER: MODERATE BRUISING ABOUT THE MID UPPER ARM EXTENDING TO POSTERIOR FOREARM Patient Instructed in Risks/Benefits No Therapeutic Exercise Therapeutic Exercise Minutes (minutes) 30 Therapeutic Exercise: To Restore SEATED TABLE SLIDES IN FLEX Functional Status STDG CIRCLES ON WALL CW/CCW2 X 10 EA SUPINE AAROM CHEST PRESS X 1MIN SUPINE S'FLEX TO OVERHEAD X 10 SUPINE AROM PROTRACTION 2 X10 SHOULDER CIRCLES X 20 ACCENTUATED BACK AND DOWN SHOULDER RETRACTION X15 HOLD 3 SEC SHOULDER SHRUGS 15 HOLD 3 SEC (TOP/BOTTOM) SEATED ROW WITH RED TB X 15 SEATED CHEST PRESS WITH RED X 10 SEATED INCLINE CHEST PRESS WITH RED X 10 SEATED B ER WITH YELLOW 2 X10 Manual Therapy Techniques Manual Therapy Minutes (minutes) 15 Manual Therapy Techniques PROM TO TOLERANCE ALL DIRECTIONS Treatment Minutes Timed Code Treatment Minutes 45 Total Treatment Time 45 Billing Units Manual Therapy Units 1 Therapeutic Exercise Units 2 Plan of Care Physical Therapy Goals STG 1. PATIENT WILL BE INDEPENDENT WITH HER HEP IN 4-6 WEEKS; GOAL MET 2. PATIENT WILL IMPROVE S' PROM FROM 108-130 DEGREES PROM FLEX IN 4-6 WEEKS; GOAL MET 3. PATIENT WILL BE INDEPENDENT WITH HER ADL'S IN 4-6 WEEKS; GOAL MET LT. PATIENT WILL DEMONSTRATE FULL PROM OF LEFT SHOULDER IN 8-12 WEEKS; GOAL NOT MET 2. PATIENT WILL BE ABLE TO PERFORM IADL'S, REACH OVERHEAD , AND DRIVE WITH PAIN RATING < 4/10 IN 8-12 WEEKS; GOAL MET Daily Plan of Care Continue per POC Recertification Information Initial Certification Date 10/27/22 Recertification Start Date 01/19/23 Reasons to Continue Skilled Therapy PATIENT IS A 77 YO PATIENT OF MYKEL VALERO REFERRED TO PHYSICAL THERAPY D/T PROXIMAL HUMERAL FX SUSTAINED AFTER FALLING ON ICE AT HER MAILBOX. SHE HAS HAD SEVERAL EMERGENT ER VISITS THIS YEAR 1.FOR PROXIMAL HUMERAL FX, 2. COPD EXACERBATION, ARF, AND PNA AND 3 CVA/TIA. 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 SHE HAS PARTICIPATED IN A COMPREHENSIVE AND INDIVIDUALIZED PROGRAM TO ADDRESS SYMPTOM MGMT, ROM, STRENGTHENING, AND STABILIZATION OF HER LEFT SHOULDER WITH MUCH IMPROVEMENT NOTED FOR EA. HER AROM AND MMT IN STDG HAS IMPROVED FROM S'FLEX AT 10 DEGREES TO 130 AND STRENGTH FROM 2/5 TO 4/5, S'ABD FROM 15 DEGREES TO 92 DEGREES AND STRENGTH FROM 2/5 TO 4/5, S'ER FROM 26 DEGREES @ 0 DEGREES ABD TO 68 AND STRENGTH FROM 2/5 TO 4+/5, AND LASTLY HER S'IR FROM STRENGTH 2/5 TO 4+/5 BUT NO SIGNIFICANT CHANGE WITH ROM. SHE IS CONSISTENT WITH HER PROGRAM AND HAS FOLLOWED UP WITH THE PHYSICIAN NOTING GOOD BUT ONGOING BONE HEALING. SHE HAS MET MOST OF HER GOALS FOR PHYSICAL THERAPY SHE HAS RETURNED INDEPENDENT ADL'S, MOD I WITH YARD WORK/ GARDENING, AND INDEPENDENT WITH KNITTING. SHE WILL CONTINUE WITH HER INDIVIDUALIZED HEP TO TOLERANCE TO CONTINUE TO IMPROVE ROM AND STRENGTH IN ORDER TO MANAGE HER SYMPTOMS AND PARTICIPATE IN FAMILY CENTERED ACTIVITIES. AT THIS TIME, SHE IS DISCHARGED FROM SKILLED PHYSICAL THERAPY AND VERBALIZED AGREEMENT WITH DISCHARGE PLANS. Provider Signature Shows Agreement With POC & Medical Necessity Discharge Note Discharge Summary SEE ABOVE Date of First Visit for Therapy 10/27/22 Date of Last Visit for Therapy 02/15/23 Interventions Provided During Treatment Joint Mobilization,Manual Therapy,Therapeutic Activities ,Therapeutic Exercise Recommendations/Reason for Discharge Progress Reached Plateau Discharge Instructions CONTINUE WITH HER HEP.
== END 2023-02-22 10:22 | disposition home or self-care (01) ==
PROVIDERS: PCP Family Medicine; Visit Provider Physician Assistant Surgical
DX: S42.009A Fracture of unspecified part of unspecified clavicle, initial encounter for closed fracture (principal); Z51.89 Encounter for other specified aftercare
CPT/HCPCS: 97110; 97140; 97162; 97164